=== PATIENT | male | born 1955 | race Caucasian/White ===

== ENCOUNTER 2020-06-30 09:42 | Emergency (ER) | payer OTHER, SELFPAY ==
--- NOTE | 2020-06-30 10:09 | ED.GENADULT ---
HPI - General Adult General Chief complaint: Eye Problems Stated complaint: Possible [employer] [facility] Time Seen by Provider: 06/30/20 10:09 Source: patient and RN notes reviewed Mode of arrival: ambulatory Limitations: no limitations History of Present Illness HPI narrative: 65-year-old male presents with complains of right eye redness for 1 day. No treatment. Dmitriy reports he looked in the mirror on 06/29/20 at approximately 18:00 and noted redness to right eye. Dmitriy reports intermittent episodes of coughing due to history of Emphysema related to history of smoking. Denies pain or drainage from eye. Denies injury or exacerbating factors. Denies blurred vision, double vision, sensation of foreign body, or pain of eye with movement. Remains active. The patient reports he have not been diagnosed with COVID-19. The patient reports he is not waiting for the results of a COVID-19 lab test. The patient reports he do not have fever, chills, weakness, or fatigue. The patient reports he do not have a new or worsening cough or shortness of breath. Denies chest pain. The patient reports he do not have any rhinorrhea, congestion, loss of taste, sore throat, nausea, vomiting, abdominal pain, and diarrhea. Tolerating po intake well. Denies recent traveling. Denies concerns for COVID-19 or exposures been home with limited outdoor exposure except for essential household needs, work, and return home. At this time, patient is not suspected of having COVID-19. Some parts of this dictation were generated by voice recognition software and may contain typographical and/or grammatical inaccuracies. Related Data Home Medications Medication Instructions Recorded Confirmed atorvastatin 10 mg PO DAILY 06/30/20 06/30/20 diclofenac sodium 75 mg PO DAILY 06/30/20 06/30/20 losartan 50 mg PO DAILY 06/30/20 06/30/20 umeclidinium-vilanterol [Anoro 25 ea INHALATION DIRECTED 06/30/20 06/30/20 Ellipta] Allergies Allergy/AdvReac Type Severity Reaction Status Date / Time No Known Allergies Allergy Verified 01/31/20 11:08 Review of Systems Constitutional: Comments: CONSTITUTIONAL: Denies fever, chills, sweats. EYES: Denies visual changes. Complains of redness to RT eye. ENT: Denies rhinorrhea, congestion, sore throat, otalgia. CARDIOVASCULAR: Denies chest pain, palpitations, edema. RESPIRATORY: Denies dyspnea, wheezing. Complains of intermittent coughing episodes. GASTROINTESTINAL: Denies abdominal pain, nausea, vomiting, diarrhea. SKIN: Denies rash or itching. MUSCULOSKELETAL: Denies acute back pain, joint pain, or myalgia. NEUROLOGIC: Denies numbness or focal weakness. PSYCHIATRIC: Denies anxiety or depression. All systems reviewed & are unremarkable except as noted in HPI and below. [facility] Past Medical History Medical History Chronic low back pain without sciatica COPD (chronic obstructive pulmonary disease) Dyslipidemia Emphysema, unspecified Essential (primary) hypertension Hearing loss right ear Surgical History Surgical History [place] teeth extracted Family History Family History (Updated 06/30/20 @ 10:35 by DARLEEN Ocampo) Mother Family history of primary malignant neoplasm of liver, Onset Age: 70 Father Heart attack Cerebrovascular accident Social History Social History (Updated 06/30/20 @ 10:36 by DARLEEN Ocampo) Smoking status: Former smoker Tobacco type: cigarettes Second hand tobacco smoke exposure: No Smoking end date: 07/07/14 Alcohol intake: former Substance use: former Living arrangements: alone Occupation/Education: occupation Gender identity (if verbalized by the patient): Male Comments At time of signature, agree with nurse past medical, surgical, social, and family history. There is no relevant family history pertinent
[2020-06-30 10:28] VITALS: BP 162/91; PULSE 69; RESP 18; TEMP 35.9; O2SAT 98
== END 2020-06-30 10:32 | disposition home or self-care (01) ==
PROVIDERS: Emergency Provider Nurse Practitioner Family; PCP Family Medicine
DX: H11.31 Conjunctival hemorrhage, right eye (principal); Z87.891 Personal history of nicotine dependence; J44.9 Chronic obstructive pulmonary disease, unspecified; E78.5 Hyperlipidemia, unspecified; I10 Essential (primary) hypertension
CPT/HCPCS: 99212; G0463

== ENCOUNTER 2021-03-22 14:29 | Outpatient (CLI) | payer OTHER, SELFPAY ==
--- NOTE | ~2021-03-22 | MR_ITS ---
EXAMINATION: MR brain IAC wo/w con EXAM DATE: 03/22/2021 15:49 INDICATION: Sudden hearing loss for one week. Chronic right-sided tinnitus. TECHNIQUE: Multi-sequential, multiplanar MR images of the brain, brainstem, internal auditory canals were obtained without contrast. Whole brain sagittal T1, axial diffusion, gradient echo (T2*), T1, T 2, FLAIR sequences obtained. High resolution coronal 3-D FIESTA, coronal T1 FSE, axial T1 FSPGR of t he internal auditory canals. Patient was then injected with 15 cc Multihance contrast intravenously. Postcontrast axial and coronal T1 weighted whole brain, axial and coronal high resolution T1 IAC seq uences obtained. There is no prior study for comparison. FINDINGS: No evidence of mastoid or middle ear opacification. The 7th/8th cranial nerve complexes a re symmetric, normal in course and caliber. No cerebellopontine angle masses. Posterior fossa unrem arkable. There are no areas of restricted diffusion to suggest acute infarction. There is no acute hemorrhage seen on the T2*, a hemosiderin sensitive sequence. No intraparenchymal brain mass lesion. There is mild periventricular and subcortical T2/FLAIR signal hyperintensity, nonspecific but probably related to small vessel ischemic disease (microangiopathy). There are no extra-axial collections. Flow voids are seen in the cerebral arteries on the T2-weighted sequences consistent with their expected p atency. The orbits are unremarkable. Soft tissue is unremarkable. There are no areas of abnormal e nhancement on the postcontrast images. IMPRESSION: 1. Unremarkable internal auditory canals. 2. Mild microangiopathy. Reviewed, dictated and finalized at location B.
[2021-03-22 15:06] LABS: Estimated Glomerular Filt Rate > 60
== END 2021-03-22 14:30 | disposition home or self-care (01) ==
LOC: ANHIMG 14:40
PROVIDERS: PCP Family Medicine; Visit Provider Nurse Practitioner Family
DX: H91.20 Sudden idiopathic hearing loss, unspecified ear (principal)
CPT/HCPCS: 70553; A9577

== ENCOUNTER 2021-10-31 07:43 | Outpatient (CLI) | payer OTHER, MEDICARE, SELFPAY ==
--- NOTE | ~2021-10-31 | US_ITS ---
EXAMINATION: US aorta [facility] DATE: 10/31/2021 08:39 INDICATION: Abdominal aortic aneurysm screening TECHNIQUE: Grayscale, color Doppler, and pulsed Doppler images of the aorta and common iliac arteries were obtained. COMPARISON: None. FINDINGS: The proximal aorta measures 2.6 cm. The mid aorta measures 2.2 cm. The distal aorta measures 1.4 cm. The right common iliac artery measures 10 mm. The left common iliac artery measures 10 mm. IMPRESSION: 1. Normal caliber abdominal aorta Reviewed, dictated and finalized at location B.
--- NOTE | ~2021-10-31 | CT_ITS ---
EXAMINATION: CT lung screening DATE: 10/31/2021 08:35 INDICATION: TECHNIQUE: Computed tomography (CT) of the chest was performed without intravenous contrast. Automate d exposure control and iterative reconstruction technique were employed. Exam dose: 96.99 mGy-cm tot al exam DLP. COMPARISON: 07/18/2014 PA and lateral chest FINDINGS: Moderately severe emphysematous changes of the lungs. Bilateral apical scarring. No pulmonary infiltrate or consolidation or pulmonary mass lesion is noted. Normal heart size. Coronary artery calcifications. No thoracic aortic aneurysm. No hilar or mediastinal mass lesion or lymphadenopathy. No adrenal mass lesion. Degenerative changes of cervical, thoracic and lumbar spine. IMPRESSION: LUNG-RADS category 1: Negative Recommendation: Annual low-dose lung CT Reviewed, dictated and finalized at Location A. Reviewed, dictated and finalized at location A.
== END 2021-10-31 07:44 | disposition home or self-care (01) ==
LOC: ANHIMG 07:48
PROVIDERS: PCP Family Medicine; Visit Provider Family Medicine
DX: Z12.2 Encounter for screening for malignant neoplasm of respiratory organs (principal); Z13.6 Encounter for screening for cardiovascular disorders; Z87.891 Personal history of nicotine dependence
CPT/HCPCS: 71271; 76706

== ENCOUNTER 2021-12-28 00:56 | Day surgery (SDC) | payer OTHER, MEDICARE, SELFPAY ==
[2021-12-10 15:46] VITALS: BMI 23.8
--- NOTE | 2021-12-27 11:54 | WPDANESEPPF ---
Anes - Initial Pre Proc Eval Procedure: Operation Date: 12/28/21 09:30 Proposed Procedures p Colonoscopy - Malcolm Gonzalez MD Date/Time: 12/27/21 11:54 Surgeon: Malcolm Gonzalez MD Pre Op Diagnosis: positive cologuard Patient Data Age: 66 Gender: M Height: 1.83 m Weight: 79.5 kg Allergies Allergy/AdvReac Type Severity Reaction Status Date / Time No Known Allergies Allergy Verified 12/28/21 08:36 Home Medications Medication Instructions Recorded Confirmed Type albuterol sulfate 90 mcg/actuation 1 inh inhalation Q4H PRN shortness 07/17/20 12/28/21 Rx aerosol inhaler of breath or wheezing #8.5 grams atorvastatin 10 mg tablet 10 mg PO QHS #90 tabs 10/22/21 12/28/21 Rx loratadine 10 mg tablet 10 mg PO DAILY #90 tabs 11/15/21 12/28/21 Rx budesonide-formoterol HFA 160 2 puff inhalation Q12H #30.6 grams 11/26/21 12/28/21 Rx mcg-4.5 mcg/actuation aerosol inhaler (Symbicort) sodium sul 1.479 gram-potas ch See Rx Instructions PO PER PKG DIR 12/07/21 12/28/21 Rx 0.188 gram-magnes sul 0.225 gram #24 tabs tablet (Sutab) alendronate 70 mg-cholecalciferol 1 tablet PO DAILY 12/10/21 12/28/21 History (vitamin D3) 2,800 unit tablet ibuprofen 300 mg tablet 300 mg PO PRN PRN Pain 12/10/21 12/28/21 History losartan 50 mg tablet 50 tablet PO DAILY 12/10/21 12/28/21 History Patient hx anesthesia problems: none Family hx anesthesia problems: none Results Review: All pre-operative results and documents have been reviewed as part of the pre-operative evaluation. [facility] Past Medical History Medical History Chronic low back pain without sciatica COPD (chronic obstructive pulmonary disease) Dyslipidemia Emphysema, unspecified Essential (primary) hypertension Hearing loss left ear Surgical History Surgical History [place] teeth extracted (Unknown) Family History Family History Mother Family history of primary malignant neoplasm of liver, Onset Age: 70 Father Heart attack Cerebrovascular accident Social History Social History Smoking packs per day: 1.5 Smoking cigarettes per day: 30.0 Years smoked: 50 Smoking pack-years: 75.00 Smoking status: Former smoker Tobacco type: cigarettes Second hand tobacco smoke exposure: No Smoking end date: 07/07/14 Alcohol intake: former Substance use: current Substance use type: marijuana Other substance usage details: occasional use Living arrangements: alone Gender identity (if verbalized by the patient): Male Spiritual care concerns: No Anes - Eval Final PreProcedure Day of Procedure 12/27/21 11:54 Patient weight: obese Heart: regular rate and rhythm Lungs: clear to auscultation Airway: Mallampati scale class II Neurological: alert and oriented Last oral intake: >/= 8 hours ASA classification: III Emergent: no Anesthetic plan: proceed Anesthesia type and monitoring: general GIVS and standard monitoring Results Review: All pre-operative results and documents have been reviewed as part of the pre-operative evaluation. Informed Consent: The patient's anesthetic plan and its attendant risks and benefits were discussed with the patient/family/POA. Questions were solicited and answers provided to the satisfaction of the patient/family/POA.
--- NOTE | 2021-12-28 07:25 | PM.HPGS ---
History of Present Illness History of Present Illness Consent: Risks, benefits, and alternatives have been discussed and questions answered. Patient agrees to proceed with procedure. Chief complaint: positive cologuard Narrative: Dmitriy Martin is a 66 year old male Who was referred for colon cancer screening. He had recently performed a Cologuard test that was positive. Review of Systems Review of Systems: All systems reviewed & are unremarkable except as noted in HPI and below PMFSH Past Medical History Medical History Chronic low back pain without sciatica COPD (chronic obstructive pulmonary disease) Dyslipidemia Emphysema, unspecified Essential (primary) hypertension Hearing loss left ear Surgical History Surgical History [place] teeth extracted (Unknown) Family History Family History Mother Family history of primary malignant neoplasm of liver, Onset Age: 70 Father Heart attack Cerebrovascular accident Social History Social History Smoking packs per day: 1.5 Smoking cigarettes per day: 30.0 Years smoked: 50 Smoking pack-years: 75.00 Smoking status: Former smoker Tobacco type: cigarettes Second hand tobacco smoke exposure: No Smoking end date: 07/07/14 Alcohol intake: former Substance use: current Substance use type: marijuana Other substance usage details: occasional use Living arrangements: alone Gender identity (if verbalized by the patient): Male Spiritual care concerns: No Meds Home Medications and Allergies Home Medications Medication Instructions Recorded Confirmed Type albuterol sulfate 90 mcg/actuation 1 inh inhalation Q4H PRN shortness 07/17/20 12/10/21 Rx aerosol inhaler of breath or wheezing #8.5 grams atorvastatin 10 mg tablet 10 mg PO QHS #90 tabs 10/22/21 12/10/21 Rx loratadine 10 mg tablet 10 mg PO DAILY #90 tabs 11/15/21 12/10/21 Rx budesonide-formoterol HFA 160 2 puff inhalation Q12H #30.6 grams 11/26/21 12/10/21 Rx mcg-4.5 mcg/actuation aerosol inhaler (Symbicort) sodium sul 1.479 gram-potas ch See Rx Instructions PO PER PKG DIR 12/07/21 12/10/21 Rx 0.188 gram-magnes sul 0.225 gram #24 tabs tablet (Sutab) alendronate 70 mg-cholecalciferol 1 tablet PO DAILY 12/10/21 12/10/21 History (vitamin D3) 2,800 unit tablet ibuprofen 300 mg tablet 300 mg PO PRN PRN Pain 12/10/21 12/10/21 History losartan 50 mg tablet 50 tablet PO DAILY 12/10/21 12/10/21 History Allergies Allergy/AdvReac Type Severity Reaction Status Date / Time No Known Allergies Allergy Verified 12/10/21 15:43 Exam Resp: Auscultation: clear to auscultation bilaterally Cardio: Rate: regular rate Rhythm: regular rhythm GI: GI Palp: Yes Soft to palpation and No Tenderness to palpation present (GI) Assessment and Plan Assessment and plan (1) Colon cancer screening: Code(s): Z12.11 - Encounter for screening for malignant neoplasm of colon Status: Acute Assessment and Plan: Colonoscopy with possible biopsy or polypectomy or cautery or injection of substances.
[2021-12-28 08:38] VITALS: BP 151/80; PULSE 61; RESP 19; TEMP 36.7; O2SAT 99
[2021-12-28] MEDS: LACTATED RINGERS 1,000 ML 150 ML IV CONT (08:48)
--- NOTE | 2021-12-28 09:37 | SUR.OPER ---
Patient pulled his IV out. procedure paused for IV placement. RN placed a new 20G IV in R AC. Procedure resumed
[2021-12-28] MEDS: SIMETHICONE ORAL SUSPENSION 20 MG/0.3 ML 30 ML BOTTLE 0.6 ML IRRIGATION (09:40)
--- NOTE | 2021-12-28 09:47 | SUR.OPER ---
RN confirmed collection of rectal polyp with Dr. Gonzalez
[2021-12-28 09:52] VITALS: BP 116/69; PULSE 75; RESP 20; O2SAT 96
[2021-12-28 10:02] VITALS: BP 104/80; PULSE 80; RESP 18; O2SAT 97
[2021-12-28 10:12] VITALS: BP 128/80; PULSE 64; RESP 20; O2SAT 100
== END 2021-12-28 10:24 | disposition home or self-care (01) ==
PROVIDERS: PCP Family Medicine; Visit Provider Internal Medicine Gastroenterology
PROC: 0DJD8ZZ Inspection of Lower Intestinal Tract, Via Natural or Artificial Opening Endoscopic (ICD-10-PCS; CPT 45378; principal; 2021-12-28 09:30)
DX: Z12.11 Encounter for screening for malignant neoplasm of colon (principal); D12.8 Benign neoplasm of rectum; K57.30 Diverticulosis of large intestine without perforation or abscess without bleeding; R19.5 Other fecal abnormalities; E78.5 Hyperlipidemia, unspecified; I10 Essential (primary) hypertension; J43.9 Emphysema, unspecified; Z79.51 Long term (current) use of inhaled steroids; Z87.891 Personal history of nicotine dependence; F12.90 Cannabis use, unspecified, uncomplicated
CPT/HCPCS: 45385; 88305; J2704; J7120

== ENCOUNTER 2022-03-18 10:30 | Outpatient (CLI) | payer OTHER, MEDICARE, SELFPAY ==
--- NOTE | ~2022-03-18 | US_ITS ---
US soft tissue chest DATE: 03/18/2022 10:57 INDICATION: Right 11:00 breast lump TECHNIQUE: Real-time imaging targeted at 11:00 right breast area COMPARISON: None FINDINGS: No suspicious mass, shadowing, cyst or other significant sonographic finding is noted in th e right breast at 11:00 at the area of clinical complaint of lump. IMPRESSION: Negative Reviewed, dictated and finalized at Location A. Reviewed, dictated and finalized at location A. IMPRESSION: Negative
== END 2022-03-18 10:31 | disposition home or self-care (01) ==
PROVIDERS: PCP Family Medicine; Visit Provider Nurse Practitioner Family
DX: N64.59 Other signs and symptoms in breast (principal)
CPT/HCPCS: 76604

== ENCOUNTER 2022-05-20 13:55 | Outpatient (CLI) | payer OTHER, MEDICARE, SELFPAY ==
[2022-05-20 19:18] LABS: Alanine Aminotransferase 17 U/L (6-50); Albumin Level 4.4 g/dL (3.5-5.1); Alkaline Phosphatase 44 U/L (38-126); Anion Gap 16 mmol/L (8-16); Aspartate Amino Transferase 22 U/L (17-59); Bilirubin,Total 0.5 mg/dL (0.2-1.3); Blood Urea Nitrogen 14 mg/dL (9-20); Calcium 9.2 mg/dL (8.4-10.2); Carbon Dioxide 27 mmol/L (22-30); Chloride 101 mmol/L (98-107); Estimated Glomerular Filt Rate > 60; Glucose 94 mg/dL (65-110); Potassium 4.2 mmol/L (3.4-5.0); Sodium 144 mmol/L (137-145)
== END 2022-05-20 13:56 | disposition home or self-care (01) ==
PROVIDERS: PCP Family Medicine; Visit Provider Family Medicine
DX: E78.5 Hyperlipidemia, unspecified (principal); I10 Essential (primary) hypertension; Z79.899 Other long term (current) drug therapy
CPT/HCPCS: 36415; 80053

== ENCOUNTER 2022-11-04 08:36 | Outpatient (CLI) | payer MEDICARE, SELFPAY ==
[2022-11-04 13:47] LABS: Basophils Absolute Auto 0.1 K/mm3 (0.0-0.1); Basophils Percent Auto 1.2 % (0.2-1.2); Eosinophils Absolute Auto 0.1 K/mm3 (0-0.3); Eosinophils Percent Auto 2.1 % (0-4.4); Hematocrit 45.3 % (42.0-52.0); Hemoglobin 14.7 g/dL (14.0-18.0); Immature Granulocyte Absolute 0.02 K/mm3 (0.00-0.031); Immature Granulocyte Percent A 0.3 % (0-0.5); Lymphocytes Absolute Auto 1.27 K/mm3 (0.9-3.2); Lymphocytes Percent Auto 22.2 % (18.3-44.2); Mean Corpuscular HGB Conc 32.5 g/dl (32-36); Mean Corpuscular Hemoglobin 30.7 pg (26-34); Mean Corpuscular Volume 94.6 fl (80-100); Mean Platelet Volume 9.8 fl (7.4-10.4); Monocytes Absolute Auto 0.6 K/mm3 (0.1-0.6); Monocytes Percent Auto 11.2 % (2.6-8.5); Neutrophils Absolute Auto 3.6 K/mm3 (1.3-6.7); Platelet Count Result 305 k/mm3 (150-375); Red Blood Count 4.79 M/mm3 (4.6-6.20); Red Cell Distribution Width 12.9 % (11.5-14.5); White Blood Count 5.7 K/mm3 (4.5-10.0)
[2022-11-04 13:58] LABS: Alanine Aminotransferase 17 U/L (6-50); Albumin Level 4.6 g/dL (3.5-5.1); Alkaline Phosphatase 53 U/L (38-126); Anion Gap 7 mmol/L (8-16); Aspartate Amino Transferase 24 U/L (17-59); Bilirubin,Total 0.6 mg/dL (0.2-1.3); Blood Urea Nitrogen 10 mg/dL (9-20); Calcium 9.1 mg/dL (8.4-10.2); Carbon Dioxide 32 mmol/L (22-30); Chloride 102 mmol/L (98-107); Cholesterol 158 mg/dL (0-200); Estimated Glomerular Filt Rate > 60; Glucose 85 mg/dL (65-110); HDL Direct 45 mg/dL; Potassium 4.5 mmol/L (3.4-5.0); Sodium 141 mmol/L (137-145); Triglycerides 142 mg/dL (<150)
[2022-11-04 14:09] LABS: LDL Cholesterol Direct 82 mg/dL
[2022-11-04 14:17] LABS: Vitamin D 25 Hydroxy 32.4 ng/mL
[2022-11-04 14:26] LABS: Prostate Specific Antigen 0.8 ng/mL (< OR = 4.0); Thyroid Stimulating Hormone 0.594 uIU/mL (0.465-4.680)
== END 2022-11-04 08:37 | disposition home or self-care (01) ==
LOC: ANHGOSHLAB 08:38
PROVIDERS: PCP Family Medicine; Visit Provider Nurse Practitioner Family
DX: E78.5 Hyperlipidemia, unspecified (principal); I10 Essential (primary) hypertension; Z12.5 Encounter for screening for malignant neoplasm of prostate; E55.9 Vitamin D deficiency, unspecified
CPT/HCPCS: 36415; 80053; 80061; 82306; 84153; 84443; 85025; G0103

== ENCOUNTER 2022-11-11 08:56 | Outpatient (CLI) | payer MEDICARE, SELFPAY ==
--- NOTE | ~2022-11-11 | CT_ITS ---
EXAMINATION: CT lung screening DATE: 11/11/2022 09:56 INDICATION: Z87.891 - Personal history of nicotine dependence TECHNIQUE: Computed tomography (CT) of the chest was performed without intravenous contrast. Addition al 3D reconstructions utilizing coronal maximum intensity projection (MIP) were performed. Automated exposure control and iterative reconstruction technique were employed. The dose-length product was 92 .84 mGy-cm. COMPARISON: 10/31/2021 FINDINGS: Severe emphysema with upper lung predominance. Mild biapical pleural-parenchymal scarring. There is a new 1.9 x 1.1 cm spiculated nodule at the anterolateral left apex. Calcified left upper lobe nodule consistent with old granulomatous disease. Unchanged 5 mm nodule at the anterior segment of the right upper lobe. No pulmonary edema or pleural effusion. Heart size is normal. Atherosclerotic coronary a rtery calcifications. No pericardial effusion. Thoracic aorta is normal in caliber. No pathologically enlarged thoracic lymphadenopathy. There is osteopenia abdomen is unremarkable. Mild thoracic dextro curvature with moderate spondylosis. IMPRESSION: 1. Lung-RADS category 4X: (Very suspicious, >15% chance of malignancy) PET-CT and/or tissue sampling depending on probably of malignancy and comorbidities. Given that this nodule is completely new since the prior study could also consider a repeat low-dose noncontrast chest CT in one month to assess fo r potential infectious or inflammatory etiology. Reviewed, dictated and finalized at location A. IMPRESSION: 1. Lung-RADS category 4X: (Very suspicious, >15% chance of malignancy) PET-CT a nd/or tissue sampling depending on probably of malignancy and comorbidities. Gi ashvin that this nodule is completely new since the prior study could also conside r a repeat low-dose noncontrast chest CT in one month to assess for potential i nfectious or inflammatory etiology.
== END 2022-11-11 08:57 | disposition home or self-care (01) ==
PROVIDERS: PCP Family Medicine; Visit Provider Nurse Practitioner Family
DX: Z12.2 Encounter for screening for malignant neoplasm of respiratory organs (principal); Z87.891 Personal history of nicotine dependence; R91.8 Other nonspecific abnormal finding of lung field
CPT/HCPCS: 71271

== ENCOUNTER 2022-12-20 09:02 | Outpatient (CLI) | payer MEDICARE, SELFPAY ==
--- NOTE | ~2022-12-20 | CT_ITS ---
EXAMINATION: CT diagnostic chest w con DATE: 12/20/2022 09:28 INDICATION: Follow-up pulmonary nodule TECHNIQUE: Computed tomography (CT) of the chest was performed with 75 cc Omnipaque 350 intravenous c ontrast. The dose-length product was 192.98 mGy-cm. Automated exposure control and iterative reconstr uction technique were employed. COMPARISON: CT dated 11/11/2022 FINDINGS: Severe emphysema. Spiculated mass in the left upper lobe measures 2.1 x 1.6 cm compared wit h 1.9 x 1.1 cm on prior examination, consistent with bronchogenic carcinoma until proven otherwise. N o endobronchial lesions. No pneumothorax. There is mediastinal lymph node enlargement. Right paratrac heal lymph node measures 12 mm short axis. No significant pleural or pericardial effusion. Heart size normal. Moderate thoracic lymphadenopathy. No focal lytic or blastic lesions. IMPRESSION: 1. Enlarging spiculated left upper lobe mass measuring up to 2.1 cm, consistent with bronchogenic car cinoma until proven otherwise. Recommend percutaneous biopsy. 2: Mediastinal lymphadenopathy. Cannot exclude metastatic disease. Reviewed, dictated and finalized at location A. IMPRESSION: 1. Enlarging spiculated left upper lobe mass measuring up to 2.1 cm, consistent with bronchogenic carcinoma until proven otherwise. Recommend percutaneous bio psy. 2: Mediastinal lymphadenopathy. Cannot exclude metastatic disease.
[2022-12-20 09:23] LABS: Estimated Glomerular Filt Rate > 60
== END 2022-12-20 09:03 | disposition home or self-care (01) ==
PROVIDERS: PCP Family Medicine; Visit Provider Nurse Practitioner Family
DX: R91.1 Solitary pulmonary nodule (principal)
CPT/HCPCS: 71260; Q9967

== ENCOUNTER 2023-01-02 01:54 | Outpatient (CLI) | payer MEDICARE, SELFPAY ==
[2022-12-27 10:21] VITALS: BMI 20.9
--- NOTE | 2022-12-27 10:24 | PC.NURSE ---
Pre Radiology instructions Report to the outpatient dax calderon on date _01/02/23____ at time _9:00AM for procedure Time: _11:00AM___ YOU MAY BE MONITORED AT HOSPITAL FOR UP TO 4 HOURS AFTER YOUR PROCEDURE. A visitor will be allowed to accompany the patient into the hospital. You and your visitor will be asked to self-screen and do not enter if you have any COVID symptoms. A mask is OPTIONAL within the hospital. Patients are to have no food or drink 6 hours prior to procedure time- 5:00AM Driving will be restricted after the procedure, you must have a person to drive you home. Labs will be drawn in preop area and once reviewed, you will be taken to radiology area for procedure. When the procedure is completed, you will be taken to outpatient where you will be monitored for several hours. You may have one visitor in this area. Other than holding anti-coagulants, patient may take other medication(s) as scheduled. Prior to your appointment date patients are instructed to hold anti-coagulants after discussing with ordering provider to stop. If unable to discontinue anti-coagulants please notify radiologist. ? No aspirin or warfarin (Coumadin) for 7 days prior to the procedure. ? No clopidogrel (Plavix), ticagrelor (Brilinta), prasugrel (Effient) or dabigatran (Pradaxa) for 5 days prior to the procedure. ? No rivaroxaban (Xarelto), apixaban (Eliquis), dipyridamole (Aggrenox or Persantine) or cilostazol (Pletal) for 2 days prior to the procedure. Medications to discontinue per physician: _NONE Date to take last dose: Please leave all valuables, including medications, at home the day of procedure. The hospital will not accept responsibility for valuables. Wear comfortable, loose fitting clothing.? Follow any additional instructions given to you from ordering provider. Telephone instructions given to __PATIENT and asked if any additional questions and then verbalized understanding. Patient advised to call scheduling provider office or registration scheduling [phone] if any additional questions.
[2023-01-02] VITALS (12 sets, daily range): BP systolic 110–146; BP diastolic 61–82; PULSE 55–70; RESP 16–18; TEMP 37.1; O2SAT 97–100; BMI 20.5
--- NOTE | ~2023-01-02 | XR_ITS ---
Portable chest x-ray Comparison: 01/02/2023 at 11:31 AM Clinical History: Postbiopsy Findings: Probable small left apical pneumothorax present. Subtle spiculated left apical pulmonary n odule noted. Right lung clear. Cardiomediastinal silhouette is stable. Bones and soft tissues are un remarkable. Impression: Probable very small left apical pneumothorax. Subtle spiculated left apical pulmonary nodule. Follow-up with biopsy results. Reviewed, dictated and finalized at location . Impression: Probable very small left apical pneumothorax. Subtle spiculated left apical pulmonary nodule. Follow-up with biopsy results.
--- NOTE | ~2023-01-02 | XR_ITS ---
EXAMINATION: XR chest 1V DATE: 01/02/2023 11:33 INDICATION: Status post percutaneous left lung biopsy TECHNIQUE: frontal view of the chest was obtained. COMPARISON: Chest CT dated 12/20/2022 FINDINGS: There is increased lucency and architectural distortion in the bilateral upper lung zones consistent with emphysema. Spiculated left apical nodule corresponding to the biopsied nodule of concern suspici ous for primary bronchogenic carcinoma. Mild linear discoid atelectasis/scarring at the lateral right middle lobe. No other airspace opacities, pulmonary edema, pleural effusion or pneumothorax. The car diomediastinal silhouette is normal. Mild thoracic dextrocurvature with moderate spondylosis. IMPRESSION: 1. No pneumothorax or other acute cardiopulmonary disease post percutaneous biopsy of a left apical n odule suspicious for primary pancreatic carcinoma. 2. Emphysema. Reviewed, dictated and finalized at location A. IMPRESSION: 1. No pneumothorax or other acute cardiopulmonary disease post percutaneous bio psy of a left apical nodule suspicious for primary pancreatic carcinoma. 2. Emphysema.
--- NOTE | ~2023-01-02 | XR_ITS ---
EXAMINATION: XR chest 1V portable Exam Date/Time: 01/02/2023 14:33 CDT HISTORY: Post Image Guided Lung Biopsy Comparison: 01/02/2023 at 12:24 PM, 11:31 AM; CT lung biopsy 01/02/2023. RESULT: Lines, tubes, and devices: None. Lungs and pleura: Persistent visualization of a pleural line in the right apex. Right apical scar. S table emphysematous change and pulmonary nodules. Cardiomediastinal silhouette: Stable. Other: No acute osseous or upper abdominal finding. IMPRESSION: Stable small apical left pneumothorax. Reviewed, dictated and finalized at location K.
--- NOTE | ~2023-01-02 | CT_ITS ---
EXAMINATION: CT biopsy lung w/imaging DATE: 01/02/2023 11:36 INDICATION: Left upper lobe pulmonary nodule TECHNIQUE: The procedure including the risks and benefits was discussed with the patient. Risks discu ssed included infection, approximately 1/20 risk of symptomatic hemorrhage beyond mild hemoptysis, ap proximately 1/3 risk of pneumothorax, and approximately 1/10 risk of pneumothorax severe enough to wa rrant chest tube placement. The patient understood the risks and agreed to proceed. The patient was p laced supine. The skin overlying the infra clavicular left chest was prepped and draped in sterile f ashion. Anesthetic was administered with 1% lidocaine subcutaneously. A 19 gauge outer needle was a dvanced under CT guidance to the lesion of interest. A 20 gauge core biopsy needle was then used to o btain 4 core biopsy specimens. The needle was removed and the entry site was cleaned and dressed. Th ere were no immediate complications. The dose-length product was 114.49 mGy-cm. FINDINGS: CT images demonstrate the outer needle tip adjacent to just within a 2.3 x 1.6 cm spiculate d nodule at the apical segment of the left upper lobe. IMPRESSION: 1. Successful CT-guided biopsy of a 2.3 x 1.6 cm left apical nodule. Reviewed, dictated and finalized at location A.
[2023-01-02 09:42] LABS: Mean Platelet Volume 9.3 fl (7.4-10.4); Platelet Count Result 285 k/mm3 (150-375)
[2023-01-02 10:04] LABS: INR 0.9; Prothrombin Time 12.4 Seconds (11.1-14.7)
--- NOTE | 2023-01-02 12:29 | SUR.PHASEII ---
cxr at in progress
--- NOTE | 2023-01-02 12:42 | SUR.PHASEII ---
this nurse called dr araiza regarding pt repeat cxr no answer and this nurse left a vm
--- NOTE | 2023-01-02 12:45 | SUR.PHASEII ---
this nurse called visitor to give an update and it went to . I left a
--- NOTE | 2023-01-02 12:54 | SUR.PHASEII ---
dr araiza aware of the recent cxr results. dr araiza said to take pt off of O2 to see how he responds and continue to monitor.
== END 2023-01-02 15:18 | disposition home or self-care (01) ==
PROVIDERS: PCP Family Medicine; Visit Provider Radiology Diagnostic Radiology
PROC: BB24ZZZ Computerized Tomography (CT Scan) of Bilateral Lungs (ICD-10-PCS; CPT 32408; principal; 2023-01-02 11:00)
DX: R91.8 Other nonspecific abnormal finding of lung field (principal); J43.9 Emphysema, unspecified
CPT/HCPCS: 32408; 36415; 71045; 85049; 85610; 88305

== ENCOUNTER 2023-02-13 09:10 | Outpatient (CLI) | payer MEDICARE, SELFPAY ==
--- NOTE | ~2023-02-13 | PE_ITS ---
EXAMINATION: PET skull to mid thigh DATE: 02/13/2023 11:00 INDICATION: Solitary pulmonary nodule TECHNIQUE: Blood glucose level was 101 mg/dL. 10.88 mCi of 18-fluorodeoxyglucose (18-FDG) was adminis tered i.v. Low dose computed tomography (CT) images were acquired from the base of the brain to the p roximal thighs for attenuation correction and anatomic localization. Positron emission tomography (PE T) images were acquired in the same distribution beginning 55 minutes after injection. Images includi ng fused PET/CT images were reconstructed in axial, coronal, and sagittal planes. Automated exposure control technique was employed. The dose-length product was 481.20mGy-cm. COMPARISON: CT dated 12/20/2022 FINDINGS: Head/neck: There is symmetric increased activity in the oral cavity, palatine tonsils, parotid glands, submandi bular glands, laryngeal muscles and ocular muscles without CT correlate, likely physiologic. No patho logically enlarged cervical lymphadenopathy or suspicious foci of increased FDG uptake in the visuali zed head or neck. Chest: Severe emphysema. 2.0 x 1.4 cm spiculated nodule at the anterior apex of the left upper lobe with pro minent FDG uptake with maximal SUV of 18.1. Small calcified nodules in the left upper lobe consistent with old granulomatous disease. 4 mm noncalcified nodule at the anterior segment of the right upper lobe near the minor fissure without evident FDG activity. No other suspicious pulmonary nodules, pneu monia or pleural effusion. Heart size is normal. Atherosclerotic coronary artery calcific lesion. No pericardial effusion. Thoracic aorta is normal in caliber. No interval change in size since 10/31/2021 in a 1.1 cm precarinal lymph node with mild increased FDG uptake with maximal SUV of 5.0. Abdomen/pelvis/proximal thighs: Physiologic renal accumulation and excretion of FDG activity in the kidneys, bladder and along portio ns of ureters. Normal degree and heterogenous pattern of increased uptake throughout the liver withou t radiologic correlate or dominant FDG avid lesion. The gallbladder, pancreas, spleen and bilateral a drenal glands are normal. Mild uptake scattered throughout the bowels without radiologic correlate, a lso likely physiologic. Numerous diverticula along the descending and sigmoid colon without adjacent from trace stranding to suggest diverticulitis. Mild prostatomegaly measuring 4.4 x 2.9 cm. No other abnormal foci of increased FDG uptake or pathologically enlarged lymphadenopathy in the abdomen, pelv is or proximal thighs. Musculoskeletal: Severe cervical and lumbar and moderate thoracic spondylosis. No suspicious lytic, blastic or FDG tanya d bone lesions. IMPRESSION: 1. Prominent FDG uptake associated with a 2.0 x 1.4 cm spiculated left upper lobe nodule which could be malignant or infectious in etiology. Recent percutaneous biopsy demonstrated chronic inflammation and fibrosis but but with no malignancy noted. Recommend continued follow-up with low-dose noncontras t chest CT in 3 months. 2. Increased uptake at a mildly enlarged precarinal lymph node which is unchanged in size since 2021, most likely reactive although in the setting of malignancy the differential would include metas tatic disease. No other lesions suspicious for metastatic disease. Reviewed, dictated and finalized at location L. IMPRESSION: 1. Prominent FDG uptake associated with a 2.0 x 1.4 cm spiculated left upper lo be nodule which could be malignant or infectious in etiology. Recent percutaneo us biopsy demonstrated chronic inflammation and fibrosis but but with no malign srikanth noted. Recommend continued follow-up with low-dose noncontrast chest CT in 3 months. 2. Increased uptake at a mildly enlarged precarinal lymph node which is unchang ed
[2023-02-13 09:32] LABS: Glucose Point of Care 101 mg/dl (65-105)
== END 2023-02-13 09:11 | disposition home or self-care (01) ==
PROVIDERS: PCP Family Medicine; Visit Provider Nurse Practitioner Family
DX: R91.1 Solitary pulmonary nodule (principal)
CPT/HCPCS: 78815; A9552

== ENCOUNTER 2023-03-04 07:52 | Outpatient (CLI) | payer MEDICARE, SELFPAY ==
--- NOTE | 2023-03-04 16:03 | WPDSIXMINUTE ---
Six Minute Walk Procedure Procedure Performed Pulmonary Stress Test (6 min walk) Six Minute Walk Six Minute Walk: This is a 6 minute walk test. The test was performed and interpreted in accordance with the 2014 ERS/ATS task force guidelines. Findings: The patient's resting room air oxygen saturation measured by pulse oximetry was 95% and heart rate was 59 bpm. Patient ambulated for 396 meters and oxygen saturation remained 95 to 98%. Heart rate at the end of the study was 72 bpm. The patient did not qualify for supplemental oxygen at rest or with ambulation. There are no prior studies for comparison.
--- NOTE | 2023-03-04 16:04 | P.PCNPFT_ITS ---
PFT Procedure Performed PFT Procedure Performed Spirometry with Pre/Post Bronchodilator Plethysmography (Lung Vol) Diffusing Cap (DLCO) Flow Vol Loop PFT Interpretation This is a pulmonary function test with pre and post-bronchodilator spirometry, plethysmography and diffusing capacity. The test was performed and results interpreted in accordance with the 2019 and 2005 ATS/ERS Task Force guidelines respectively using the Global Lung Function Initiative-2012 reference equations. Patient demonstrated good effort and cooperation. Reproducibility criteria were met. The quality of the pre bronchodilator spirometry maneuver was Grade A and post bronchodilator spirometry maneuver was Grade A. Findings: Spirometry: There is decreased maximal expiratory airflow at all lung volumes with concave expiratory flow tracing. The contour the inspiratory flow tracing is normal. The pre bronchodilator FVC is 4.35 L, 92% predicted. The pre bronchodilator FEV1 is 1.82 L, 51% predicted. The pre bronchodilator FEV1: FVC ratio is 42%. The the post bronchodilator FVC is 4.89 L, representing a 13% increase. The post bronchodilator FEV1 is 2.11 L, representing a 16% increase. The post bronchodilator FEV1: FVC ratio is 43%. Plethysmography: The total lung capacity is 9.43 L, 127% predicted. The func tional residual capacity is 6.26 L, 159% predicted. The residual volume is 4.97 L, 200% predicted. Diffusing capacity: The diffusing capacity unadjusted for hemoglobin and carboxyhemoglobin is 16.3, 59% predicted. The diffusing capacity adjusted for alveolar volume is 2.70, 68% predicted. In comparison to previous pulmonary function testing performed on 05/25/2019 the post bronchodilator FVC has increased from 4.10 L to 4.89 L. The post bronchodilator FEV1 has increased from 1.68 L to 2.11 L. The total lung capacity has remained unchanged from 8.98 L to 9.43 L. The functional residual capacity is unchanged from 6.87 L to 6.26 L. The residual volume is unchanged from 5.36 L to 4.97 L. The diffusing capacity unadjusted for hemoglobin and carboxyhemoglobin is unchanged from 16.9 to 16.3. The diffusing capacity adjusted for alveolar volume is decreased from 3.39 to 2.70. Impression: There is a moderately severe obstructive abnormality with significant improvement after inhaling a single dose of albuterol. The increase in residual volume is consistent with air trapping from an obstructive abnormality. Hyperinflation is present as demonstrated by the increase in functional residual capacity and total lung capacity and is consistent with an obstructive abnormality. The diffusing capacity unadjusted for hemoglobin and carboxyhemoglobin is moderately decreased and normalizes when adjusted for alveolar volume. In comparison to previous pulmonary function testing on 05/25/2019 there has been a greater than anticipated time dependent increase in the FVC and FEV1 with a greater than anticipated time dependent decrease in the diffusing capacity adjusted for alveolar volume with no significant change in the total lung capacity, functional residual capacity, residual volume and diffusing capacity unadjusted for hemoglobin and carboxyhemoglobin. Clinical correlation is recommended.
== END 2023-03-04 07:53 | disposition home or self-care (01) ==
LOC: ANHPFT 07:53
PROVIDERS: PCP Family Medicine; Visit Provider Nurse Practitioner Family
DX: R94.2 Abnormal results of pulmonary function studies (principal)
CPT/HCPCS: 94060; 94618; 94726; 94729

== ENCOUNTER 2023-05-16 08:55 | Outpatient (CLI) | payer MEDICARE, SELFPAY ==
[2023-05-16 13:56] LABS: Basophils Absolute Auto 0.1 K/mm3 (0.0-0.1); Basophils Percent Auto 1.5 % (0.2-1.2); Eosinophils Absolute Auto 0.1 K/mm3 (0-0.3); Eosinophils Percent Auto 2.3 % (0-4.4); Hematocrit 44.7 % (42.0-52.0); Hemoglobin 14.4 g/dL (14.0-18.0); Immature Granulocyte Absolute 0.02 K/mm3 (0.00-0.031); Immature Granulocyte Percent A 0.4 % (0-0.5); Immature Platelet Fraction Pct 5.7 % (0.9-11.2); Lymphocytes Percent Auto 30.9 % (18.3-44.2); Mean Corpuscular HGB Conc 32.2 g/dl (32-36); Mean Corpuscular Hemoglobin 31.1 pg (26-34); Mean Corpuscular Volume 96.5 fl (80-100); Mean Platelet Volume 10.8 fl (7.4-10.4); Monocytes Absolute Auto 0.5 K/mm3 (0.1-0.6); Monocytes Percent Auto 10.4 % (2.6-8.5); Neutrophils Absolute Auto 2.8 K/mm3 (1.3-6.7); Neutrophils Percent Auto 54.5 % (45.5-73.1); Platelet Count Result 301 k/mm3 (150-375); Red Blood Count 4.63 M/mm3 (4.6-6.20); Red Cell Distribution Width 13.1 % (11.5-14.5); White Blood Count 5.2 K/mm3 (4.5-10.0)
[2023-05-16 14:41] LABS: LDL Cholesterol Direct 104 mg/dL
[2023-05-16 14:56] LABS: Alanine Aminotransferase 15 U/L (6-50); Albumin Level 4.4 g/dL (3.5-5.1); Alkaline Phosphatase 53 U/L (38-126); Anion Gap 7 mmol/L (8-16); Aspartate Amino Transferase 23 U/L (17-59); Bilirubin,Total 0.6 mg/dL (0.2-1.3); Blood Urea Nitrogen 15 mg/dL (9-20); Calcium 9.2 mg/dL (8.4-10.2); Carbon Dioxide 30 mmol/L (22-30); Chloride 103 mmol/L (98-107); Cholesterol 174 mg/dL (0-200); Estimated Glomerular Filt Rate > 60; Glucose 96 mg/dL (65-110); HDL Direct 45 mg/dL; Potassium 4.2 mmol/L (3.4-5.0); Sodium 140 mmol/L (137-145); Triglycerides 105 mg/dL (<150)
[2023-05-20 09:58] LABS: Vitamin D 1,25 (OH)2 Total 43 pg/mL (18-72); Vitamin D2 1,25 (OH)2 <8 pg/mL; Vitamin D3 1,25 (OH)2 43 pg/mL
[2023-05-20 22:06] LABS: PSA, Free 0.14 ng/mL; PSA, Total 0.5 ng/mL (<=4.0)
== END 2023-05-16 08:56 | disposition home or self-care (01) ==
LOC: ANHGOSHLAB 08:56
PROVIDERS: PCP Family Medicine; Visit Provider Nurse Practitioner Family
DX: Z12.5 Encounter for screening for malignant neoplasm of prostate (principal); I10 Essential (primary) hypertension; E55.9 Vitamin D deficiency, unspecified
CPT/HCPCS: 36415; 80053; 80061; 82652; 84153; 84154; 85025; 85055; G0103

== ENCOUNTER 2023-05-19 08:45 | Outpatient (CLI) | payer MEDICARE, SELFPAY ==
--- NOTE | ~2023-05-19 | CT_ITS ---
EXAMINATION:CT diagnostic chest wo con DATE: 05/19/2023 08:59 INDICATION: Other nonspecific abnormal finding in lung field. TECHNIQUE: Computed tomography (CT) of the chest was performed without intravenous contrast. Automate d exposure control and iterative reconstruction technique were employed. The dose-length product (DLP ) was 180.70 mGy-cm. COMPARISON: Chest CT 12/20/2022, PET/CT 02/13/2023 FINDINGS: There is severe emphysema. There is a new 15 mm nodule in right upper lobe. There is a 15 m m nodule in left upper lobe with improvement from 18 mm on 12/20/2022. Again seen is a 4 mm nodule in right upper lobe. No pleural effusion. The heart size is normal. There are coronary artery calcificat ions. No pericardial effusion. There is mild bilateral gynecomastia. There is stable mild mediastinal lymphadenopathy, likely benign. There is severe thoracic spondylosis. There is mild chronic anterior wedging of multiple vertebral bodies. IMPRESSION: 1. New 15 mm nodule in right lung upper lobe, probably granulomatous disease. Noncontrast low-dose ch est CT is recommended in 3 months to exclude malignancy. 2. Improved 15 mm biopsy-proved benign nodule in left lung upper lobe. 3. Severe emphysema. Reviewed, dictated and finalized at location A. MENTAL MACHINE OPERATOR IMPRESSION: 1. New 15 mm nodule in right lung upper lobe, probably granulomatous disease. N oncontrast low-dose chest CT is recommended in 3 months to exclude malignancy. 2. Improved 15 mm biopsy-proved benign nodule in left lung upper lobe. 3. Severe emphysema.
== END 2023-05-19 08:46 | disposition home or self-care (01) ==
PROVIDERS: PCP Family Medicine; Visit Provider Nurse Practitioner Family
DX: R91.8 Other nonspecific abnormal finding of lung field (principal); J43.9 Emphysema, unspecified
CPT/HCPCS: 71250

== ENCOUNTER 2023-08-19 12:48 | Outpatient (CLI) | payer MEDICARE, SELFPAY ==
--- NOTE | ~2023-08-19 | CT_ITS ---
CT Scan of the Chest without Contrast: Clinical Indication: Pulmonary nodule Technique: Contiguous sections were acquired throughout the chest without intravenous contrast. Dose reduction technique was used on this scan by utilizing automated exposure control and iterative recon struction technique. The dose-length product (DLP) was 85.33 mGy-cm. COMPARISON: 05/19/2023 Findings: There is no evidence of any significant mediastinal, hilar or axillary lymphadenopathy. The mediastin al soft tissues appear normal. There is no evidence of pleural or pericardial effusion. Irregular left apical opacity is further decreased from prior exam. 2.5 cm irregular right apical pul monary nodule is mildly increased from prior exam. There is moderate to advanced emphysema. Images through the upper abdomen reveal no abnormalities. Impression: 2.5 cm irregular right apical pulmonary nodule is probably increased from prior exam. Consider tissue sampling to establish a histologic diagnosis. Irregular left apical lesion is further decreased from prior exam. Underlying moderate to advanced emphysema. Reviewed, dictated and finalized at [facility]. [employer]IONS SALES CONSULTANT Impression: 2.5 cm irregular right apical pulmonary nodule is probably increased from prior exam. Consider tissue sampling to establish a histologic diagnosis. Irregular left apical lesion is further decreased from prior exam. Underlying moderate to advanced emphysema.
== END 2023-08-19 12:49 | disposition home or self-care (01) ==
LOC: ANHIMG 12:48
PROVIDERS: PCP Family Medicine; Visit Provider Nurse Practitioner Family
DX: R91.1 Solitary pulmonary nodule (principal); J43.9 Emphysema, unspecified
CPT/HCPCS: 71250

== ENCOUNTER 2023-08-28 11:52 | Outpatient (CLI) | payer MEDICARE, SELFPAY ==
--- NOTE | ~2023-08-28 | PE_ITS ---
EXAMINATION: PET skull to mid thigh DATE: 08/28/2023 14:21 INDICATION: Lung nodule TECHNIQUE: Blood glucose level was 94 mg/dL. 11.091 mCi of 18-fluorodeoxyglucose (18-FDG) was adminis tered i.v. Low dose computed tomography (CT) images were acquired from the base of the brain to the p roximal thighs for attenuation correction and anatomic localization. Positron emission tomography (PE T) images were acquired in the same distribution beginning 60 minutes after injection. Images includi ng fused PET/CT images were reconstructed in axial, coronal, and sagittal planes. Automated exposure control technique was employed. The dose-length product was 502.85mGy-cm. COMPARISON: PET/CT dated 02/13/[address] studies dated 08/19/2023, 05/19/2023 and 12/20/2022 FINDINGS: Head/neck: There is symmetric increased activity in the oral cavity, laryngeal muscles and ocular muscles withou t CT correlate, likely physiologic. No pathologically enlarged cervical lymphadenopathy or suspicious foci of increased FDG uptake in the visualized head or neck. Chest: Severe emphysema. Interval decrease in size of a now 1.6 x 0.9 cm, previously 2.0 x 1.4 cm left apica l nodule with resolution of the prior prominent increased FDG uptake and with interval biopsy demonst rating chronic inflammation fibrosis but with no malignancy. 2.4 x 1.4 cm spiculated right apical nod ule, new since the prior PET/CT with moderate increased FDG uptake of 12.4. This lesion developed in size of 2.2 x 1.1 cm in the interval between the prior PET/CT on 02/13/[address] 3 mo nths prior at which time it measured 2.4 x 1.1 cm. Given the rapid development over 3 months and the lack of significant interval change management coordinator the following 3 months would again favor an infectious/infla mmatory nodule as with the previously noted now resolving nodule at the contralateral left apex. Ther e is a second FDG avid nodule measuring 8 x 7 mm more anteriorly left upper lobe along the lateral ma rgin of the manubrium which developed in the interval between 05/19/2023 and the SUV on 08/19/2023 wit h maximal SUV of 4.7. No other suspicious new, enlarging or FDG avid pulmonary nodules. No interval change in a few normal-sized mediastinal and left hilar lymph nodes mild increased with u nchanged mild increased uptake of 5.1 at the precarinal lymph node and with uptake at the left hilar lymph node of 4.8 which is decreased from 6.4. No new or, enlarging or increasingly FDG avid thoracic lymphadenopathy to suggest metastatic disease. Arch size is normal. Atherosclerotic coronary artery calcific location. No pericardial or pleural effusion. Abdomen/pelvis/proximal thighs: Physiologic renal accumulation and excretion of FDG activity in the kidneys, bladder and along portio ns of ureters. Normal degree and heterogenous pattern of increased uptake throughout the liver withou t radiologic correlate or dominant FDG avid lesion. The gallbladder, pancreas, spleen and bilateral a drenal glands are normal. Mild moderate uptake scattered throughout the bowels without radiologic cor relate, also likely physiologic. Scattered diverticulosis without adjacent from trace stranding to maurer ggest diverticulitis. Prostatomegaly. No other abnormal foci of increased FDG uptake or pathologicall y enlarged lymphadenopathy in the abdomen, pelvis or proximal thighs. Musculoskeletal: Severe cervical and lumbar and moderate thoracic spondylosis. No suspicious lytic, blastic or FDG tanya d bone lesions. IMPRESSION: 1. Interval decrease in size and marked decrease in FDG uptake of a previously biopsied left apical n odule with interval evolution along with pathology from the prior biopsy most consistent with resolvi ng infectious/inflammatory nodule. 2. A couple FDG avid nodules at the right apex, the larger with rapid development over the course of 3 months and relative stability over the subsequent 3 months and with
[2023-08-28 12:17] LABS: Glucose Point of Care 94 mg/dl (65-105)
== END 2023-08-28 11:53 | disposition home or self-care (01) ==
PROVIDERS: PCP Family Medicine; Visit Provider Nurse Practitioner Family
DX: R91.8 Other nonspecific abnormal finding of lung field (principal)
CPT/HCPCS: 78815; A9552

== ENCOUNTER 2023-11-10 10:46 | Outpatient (CLI) | payer MEDICARE, SELFPAY ==
[2023-11-10 19:33] LABS: Basophils Absolute Auto 0.1 K/mm3 (0.0-0.1); Basophils Percent Auto 1.3 % (0.2-1.2); Eosinophils Absolute Auto 0.1 K/mm3 (0-0.3); Eosinophils Percent Auto 1.6 % (0-4.4); Hematocrit 45.5 % (42.0-52.0); Hemoglobin 14.8 g/dL (14.0-18.0); Immature Granulocyte Absolute 0.01 K/mm3 (0.00-0.031); Immature Granulocyte Percent A 0.2 % (0-0.5); Lymphocytes Absolute Auto 1.62 K/mm3 (0.9-3.2); Lymphocytes Percent Auto 25.4 % (18.3-44.2); Mean Corpuscular HGB Conc 32.5 g/dl (32-36); Mean Corpuscular Volume 95.2 fl (80-100); Mean Platelet Volume 9.8 fl (7.4-10.4); Monocytes Absolute Auto 0.6 K/mm3 (0.1-0.6); Monocytes Percent Auto 9.4 % (2.6-8.5); Neutrophils Percent Auto 62.1 % (45.5-73.1); Platelet Count Result 321 k/mm3 (150-375); Red Blood Count 4.78 M/mm3 (4.6-6.20); Red Cell Distribution Width 12.8 % (11.5-14.5); White Blood Count 6.4 K/mm3 (4.5-10.0)
[2023-11-10 20:01] LABS: Alanine Aminotransferase 16 U/L (6-50); Albumin Level 4.6 g/dL (3.5-5.1); Alkaline Phosphatase 52 U/L (38-126); Anion Gap 6 mmol/L (4-12); Aspartate Amino Transferase 26 U/L (17-59); Bilirubin,Total 0.6 mg/dL (0.2-1.3); Blood Urea Nitrogen 13 mg/dL (9-20); Calcium 9.6 mg/dL (8.4-10.2); Carbon Dioxide 31 mmol/L (22-30); Chloride 103 mmol/L (98-107); Cholesterol 151 mg/dL (0-200); Estimated Glomerular Filt Rate > 60; Glucose 95 mg/dL (65-110); HDL Direct 49 mg/dL; Potassium 4.8 mmol/L (3.4-5.0); Sodium 140 mmol/L (137-145); Triglycerides 111 mg/dL (<150)
[2023-11-10 20:15] LABS: LDL Cholesterol Direct 87 mg/dL
[2023-11-12 14:23] LABS: PSA, Free 0.2 ng/mL; PSA, Total 0.7 ng/mL (< OR = 4.0); Percent Free Prostate Spec Ag 29 % (calc) (>25)
[2023-11-14 18:04] LABS: Vitamin D 1,25 (OH)2 Total 39 pg/mL (18-72); Vitamin D2 1,25 (OH)2 <8 pg/mL; Vitamin D3 1,25 (OH)2 39 pg/mL
== END 2023-11-10 10:47 | disposition home or self-care (01) ==
PROVIDERS: PCP Family Medicine; Visit Provider Nurse Practitioner Family
DX: E55.9 Vitamin D deficiency, unspecified (principal); I10 Essential (primary) hypertension; Z12.5 Encounter for screening for malignant neoplasm of prostate
CPT/HCPCS: 36415; 80053; 80061; 82652; 84153; 84154; 85025; G0103

== ENCOUNTER 2023-11-10 10:55 | Outpatient (CLI) | payer MEDICARE, SELFPAY ==
--- NOTE | ~2023-11-10 | XR_ITS ---
Right Shoulder Technique: AP and scapular Y views were obtained. Clinical History: Pain Findings: No fracture or dislocation is seen. Osseous alignment is anatomic. The glenohumeral and acr omioclavicular joint spaces are preserved. Soft tissues are unremarkable. Impression: Unremarkable right shoulder radiographs. Reviewed, dictated and finalized at [facility]. Impression: Unremarkable right shoulder radiographs.
== END 2023-11-10 10:56 ==
LOC: GOSHIMG 10:57
PROVIDERS: PCP Family Medicine; Visit Provider Nurse Practitioner Family
DX: M25.511 Pain in right shoulder (principal)
CPT/HCPCS: 73030

== ENCOUNTER 2023-12-15 07:42 | Outpatient (CLI) | payer MEDICARE, SELFPAY ==
--- NOTE | ~2023-12-15 | CT_ITS ---
CT Scan of the Chest without Contrast: Clinical Indication: COPD Technique: Contiguous sections were acquired throughout the chest without intravenous contrast. Dose reduction technique was used on this scan by utilizing automated exposure control and iterative recon struction technique. The dose-length product (DLP) was 177.18 mGy-cm. COMPARISON: 08/19/2023 Findings: There is no evidence of any significant mediastinal, hilar or axillary lymphadenopathy. The mediastin al soft tissues appear normal. There is no evidence of pleural or pericardial effusion. Moderate to severe emphysema present. Stable spiculated nodular density at the right lung apex, which could reflect chronic scarring. 4 mm nodule at the inferior right upper lobe present (axial image 77). New 7 mm nodularity at the per ipheral right middle lobe (axial image 98). There are patchy airspace opacities at the bilateral lung bases, new from prior exam (axial images 110-121). Images through the upper abdomen reveal no abnormalities. Impression: Multiple new small irregular nodules/airspace opacities, predominantly the lung bases, as detailed ab ove, suggestive of infectious/inflammatory process. Stable spiculated larger nodule/consolidation the right lung apex. Moderate to advanced emphysema. Reviewed, dictated and finalized at location . Impression: Multiple new small irregular nodules/airspace opacities, predominantly the lung bases, as detailed above, suggestive of infectious/inflammatory process. Stable spiculated larger nodule/consolidation the right lung apex. Moderate to advanced emphysema.
== END 2023-12-15 07:43 | disposition home or self-care (01) ==
PROVIDERS: PCP Family Medicine; Visit Provider Nurse Practitioner Family
DX: R91.8 Other nonspecific abnormal finding of lung field (principal); J43.9 Emphysema, unspecified
CPT/HCPCS: 71250

== ENCOUNTER 2024-05-21 08:39 | Outpatient (CLI) | payer MEDICARE, SELFPAY ==
--- NOTE | ~2024-05-21 | XR_ITS ---
EXAMINATION: XR lumbar spine 2-3V DATE: 05/21/2024 08:52 INDICATION: Low back pain TECHNIQUE: Anteroposterior and lateral views of the lumbar spine, and cone-down lateral view of the l umbosacral junction were obtained. COMPARISON: None. FINDINGS: 10 degrees lower thoracic levoscoliosis and 10 degrees lumbar dextroscoliosis. For millimeter retroli sthesis L3 on L4 and 2 mm retrolisthesis L2 on L3 and L4 on L5. Vertebral body heights are normal. Se shivani disc height loss with degenerative endplate changes at L1-L2. Mild to moderate disc height loss at T12-L1, L2-L3 and L3-L4. Mild disc height loss at L5-S1 and T10-T11. Moderate multilevel lumbar fa cet osteoarthritis. Mild bilateral sacroiliac osteoarthritis. Visualized lung bases are clear with no pleural effusion. IMPRESSION: 1. 10 degrees lower thoracic levoscoliosis and 10 degrees lumbar dextroscoliosis. 2. Severe disc height loss with degenerative endplate changes at L1-L2 with otherwise mild to moderat e lumbar and lower thoracic spondylosis. Reviewed, dictated and finalized at location B. S SUPPORT ASSOCIATE IMPRESSION: 1. 10 degrees lower thoracic levoscoliosis and 10 degrees lumbar dextroscoliosi s. 2. Severe disc height loss with degenerative endplate changes at L1-L2 with oth erwise mild to moderate lumbar and lower thoracic spondylosis.
== END 2024-05-21 08:40 | disposition home or self-care (01) ==
LOC: GOSHIMG 08:41
PROVIDERS: PCP Family Medicine; Visit Provider Nurse Practitioner Family
DX: M51.369 Other intervertebral disc degeneration, lumbar region without mention of lumbar back pain or lower extremity pain (principal)
CPT/HCPCS: 72100

== ENCOUNTER 2024-06-07 13:52 | Outpatient (CLI) | payer MEDICARE, SELFPAY ==
--- NOTE | ~2024-06-07 | CT_ITS ---
CT Scan of the Chest without Contrast: Clinical Indication: Nonspecific abnormal finding of lung field Technique: Contiguous sections were acquired throughout the chest without intravenous contrast. Dose reduction technique was used on this scan by utilizing automated exposure control and iterative recon struction technique. The dose-length product (DLP) was 77.15 mGy-cm. COMPARISON: 12/15/2023 Findings: There is no evidence of any significant mediastinal, hilar or axillary lymphadenopathy. The mediastin al soft tissues appear normal. There is no evidence of pleural or pericardial effusion. There is advanced emphysema. Stable biapical/upper lobe scarring. There is focal scarring or atelecta sis right lung base. Additional probably bibasilar nodule seen on prior exam are resolved. Images through the upper abdomen reveal no abnormalities. Impression: Interval resolution of predominantly bibasilar pulmonary nodules from prior exam, consistent with res olving infectious/inflammatory process. Advanced emphysema with areas of chronic scarring, as above. Reviewed, dictated and finalized at location M. KER Impression: Interval resolution of predominantly bibasilar pulmonary nodules from prior exa m, consistent with resolving infectious/inflammatory process. Advanced emphysema with areas of chronic scarring, as above.
== END 2024-06-07 13:53 | disposition home or self-care (01) ==
PROVIDERS: PCP Family Medicine; Visit Provider Nurse Practitioner Family
DX: R91.8 Other nonspecific abnormal finding of lung field (principal); J43.9 Emphysema, unspecified
CPT/HCPCS: 71250

== ENCOUNTER 2024-11-19 09:26 | Outpatient (CLI) | payer MEDICARE, SELFPAY ==
--- OUTSIDE RECORDS SUMMARY | 2024-11-19 09:34 | XMS_ITS | Clinical Summary ---
Author Organization [facility] Address [address] [place] [address] Care Team Providers Care Paper Stacker Name Role Phone Leon Garcia MD Primary Care Provider Source Comments [facility],non-owned Affiliates and Associated Physician Practices is amultiple site organization consisting of ambulatory clinics and hospital sitesin [place], [place], [place] and [place]. This disclosure is being madepursuant to the Care Everywhere program and may not contain all information available regarding this patient. Last updated 18.[facility] Allergies No known active allergies Medications * Be aware that medications may not be up to date on this document. Alwaysverify current medications with the patient. atorvastatin (LIPITOR) 10 MG tablet Take 10 mg by mouth at bedtime Active losartan (COZAAR) 50 MG tablet Take 50 mg by mouth once daily Active DICLOFENAC POTASSIUM PO Active umeclidinium-vi lanterol (ANORO ELLIPTA) 62.5-25 MCG/INH inhaler Inhale 1 puff by mouth once daily Active Social History Tobacco Use Types Packs/Day Years Used Date Smoking Tobacco: Former Cigarettes Q uit: 2014 Smokeless Tobacco: Never Sex and Gender Information Value Date Recorded Sex Assigned at Not on file Legal Sex Male 1:16 PM FURNACE ERECTOR Gender Identity Not on file Sexual Orientation Not on file Last Filed Vital Signs Vital Sign Reading Time Taken Comments Blood Pressure - - Pulse 67 06/04/2019 3:07 PM FURNACE ERECTOR Temperature 36.4 C (97.5 F) 06/04/2019 3:07 PM FURNACE ERECTOR Respiratory Rate 16 06/04/2019 3:07 PM FURNACE ERECTOR Oxygen Saturation 98% 06/04/2019 3:07 PM FURNACE ERECTOR Inhaled Oxygen Concentration - - Weight 87.5 kg (193 lb) 06/04/2019 3:07 PM FURNACE ERECTOR Height 185.4 cm (6' 1 ) 06/04/2019 3:07 PM FURNACE ERECTOR Body Mass Index 25.46 06/04/2019 3:07 PM FURNACE ERECTOR Plan of Treatment Health Maintenance Due Date Last Done Comments COLOGUARD (AGES 45-75) - COL ON CA SCREENING 1956 COLON MONITORING 1956 COLONOSCOPY - COLON CA SCREENING 1956 CT COLONOGRAPHY - COLON CA SCREENING 1956 Colorectal Cancer Screening 1956 FIT - COLON CA SCREENING 1956 FLEX SIG - COLON CA SCREENING 1956 MEDICARE AWV 12 MONTHS 1956 HEPATITIS C SCREENING 04/18/1974 DTAP/TDAP/TD VACCINES (1 - Tdap) 1975 PNEUMOCOCCAL VACCINE 50+ (1 of 1 - PCV) 2006 ZOSTER VACCINE (1 of 2) 2006 SCREENING FOR DIABETES 06/04/2019 AAA SCREENING 2021 COVID-19 VACCINE (1 - 2023-2 5 season) 2024 DEPRESSION SCREENING 07/07/2024 INFLUENZA VACCINE (Season Ended) 2025 Respiratory Syncytial Virus (RSV) Vaccine Pt: or over 60 yrs (1 - 1-dose 75+ series) 2031 HEPATITIS B VACCINE Aged Out No longe r eligible based on patient's age to complete this topic HIB VACCINE Aged Out No longer eligi ble based on patient's age to complete this topic HPV VACCINE Aged Out No longer eligi ble based on patient's age to complete this topic MENINGOCOCCAL (Group B) VACC INE SHARED DECISION-MAKING Aged Out No longer eligibl e based on patient's age to complete this topic MENINGOCOCCAL GROUPS A/C/Y/W VACCINE Aged Out No longer eligible b ased on patient's age to complete this topic Insurance MEDICARE MEDICARE Care Teams Paper Stacker Relationship Specialty Start Date End Date Leon Garcia MD [address] [place] [id number] PCP - General Family Medicine 06/04/19
--- OUTSIDE RECORDS SUMMARY | 2024-11-19 09:34 | XMS_ITS | Clinical Summary ---
Author Organization [facility] Address [facility] [place] [address] Care Team Providers Care Fabrication And Assembly Supervisor Name Role Phone TierneyWinifred NELA Primary Care Provider [phone] Allergies No known active allergies Medications atorvastatin 10 MG tablet Take 10 mg by mouth. Active losartan 50 MG tablet 03/24/2021 Active umeclidinium-kassi anterol 62.5-25 MCG/INH inhaler Inhale 1 puff into the lungs daily. Active loratadine 10 MG tablet 04/26/2021 Active Active Problems No known active problems Immunizations Immunization Administration Dates Next Due Influenza Adult (Generic) 04/28/2019 Pneumococcal (Pneumovax 23) 09/09/2014 Tdap (Generic) 09/09/2014 Family History Medical History Relation Comments Cerebrovascular Accident Father Heart Attack Father Malignant neoplasm of liver Mother Relation Status Comments Father Mother Social History Tobacco Use Types Packs/Day Years Used Date Smoking Tobacco: Former Cigarettes Q uit: 07/07/2014 Smokeless Tobacco: Never Tobacco Cessation:Counseling Given: No Comments:quit Alcohol Use Standard Drinks/Week Comments Not Currently 0 (1 standard drink = 0.6 oz pur e alcohol) Former Sex and Gender Information Value Date Recorded Sex Assigned at Not on file 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[employer] Gender Identity Not on file Sexual Orientation Not on file Last Filed Vital Signs Vital Sign Reading Time Taken Comments Blood Pressure 135/82 07/24/2021 10:09 AM MAINS AND SERVICE SUPERVISOR Pulse 70 07/24/2021 10:09 AM MAINS AND SERVICE SUPERVISOR Temperature 36.5 C (97.7 F) 07/24/2021 10:09 AM MAINS AND SERVICE SUPERVISOR Respiratory Rate 18 07/24/2021 10:09 AM MAINS AND SERVICE SUPERVISOR Oxygen Saturation 95% 07/24/2021 10:09 AM MAINS AND SERVICE SUPERVISOR Inhaled Oxygen Concentration - - Weight 71.7 kg (158 lb) 07/24/2021 10:09 AM MAINS AND SERVICE SUPERVISOR Height 182.9 cm (6') 07/24/2021 10:09 AM MAINS AND SERVICE SUPERVISOR Body Mass Index 21.43 07/24/2021 10:09 AM MAINS AND SERVICE SUPERVISOR Plan of Treatment Health Maintenance Due Date Last Done Comments Colorectal Cancer Screening Colonoscopy (10 Years) 1956 Hepatitis C 1974 Zoster Vaccines (1 of 2) 2006 Pneumococcal Vaccine: 50+ Years (2 of 2 - PCV) 09/10/2015 09/09/2014 Annual Medicare Wellness Visit 2021 COVID-19 Vaccine (3 - 2023-2 5 season) 2024 11/02/2020, 10/05/2020 DTaP, Tdap and Td Vaccines ( 2 - Td or Tdap) 09/09/2024 09/09/2014 RSV Immunization or 60+ Years (1 - 1-dose 75+ series) 2031 Meningococcal B Vaccine Aged Out No l onger eligible based on patient's age to complete this topic Meningococcal Vaccine Aged Out No master rikki eligible based on patient's age to complete this topic RSV Immunizations Under 20 Months Aged Out No longer eligible b ased on patient's age to complete this topic Insurance [facility] MEDICARE Care Teams Fabrication And Assembly Supervisor Relationship Specialty Start Date End Date Winifred Tireney NP PCP - General NURSE PRACTITIONER 04/05/21
[2024-11-19 12:22] LABS: Basophils Absolute Auto 0.1 K/mm3 (0.0-0.1); Basophils Percent Auto 0.8 % (0.2-1.2); Eosinophils Absolute Auto 0.2 K/mm3 (0-0.3); Eosinophils Percent Auto 2.5 % (0-4.4); Hematocrit 41.8 % (42.0-52.0); Hemoglobin 13.7 g/dL (14.0-18.0); Immature Granulocyte Absolute 0.02 K/mm3 (0.00-0.031); Immature Granulocyte Percent A 0.3 % (0-0.5); Lymphocytes Absolute Auto 1.66 K/mm3 (0.9-3.2); Lymphocytes Percent Auto 27.4 % (18.3-44.2); Mean Corpuscular HGB Conc 32.8 g/dl (32-36); Mean Corpuscular Hemoglobin 30.7 pg (26-34); Mean Corpuscular Volume 93.7 fl (80-100); Mean Platelet Volume 9.4 fl (7.4-10.4); Monocytes Absolute Auto 0.5 K/mm3 (0.1-0.6); Monocytes Percent Auto 8.7 % (2.6-8.5); Neutrophils Absolute Auto 3.7 K/mm3 (1.3-6.7); Neutrophils Percent Auto 60.3 % (45.5-73.1); Platelet Count Result 347 k/mm3 (150-375); Red Blood Count 4.46 M/mm3 (4.6-6.20); Red Cell Distribution Width 12.9 % (11.5-14.5); White Blood Count 6.1 K/mm3 (4.5-10.0)
[2024-11-19 12:55] LABS: Alanine Aminotransferase 18 U/L (6-50); Albumin Level 4.2 g/dL (3.5-5.1); Alkaline Phosphatase 56 U/L (38-126); Anion Gap 6 mmol/L (4-12); Aspartate Amino Transferase 38 U/L (17-59); Bilirubin,Total 0.7 mg/dL (0.2-1.3); Blood Urea Nitrogen 12 mg/dL (9-20); Calcium 8.9 mg/dL (8.4-10.2); Carbon Dioxide 29 mmol/L (22-30); Chloride 105 mmol/L (98-107); Cholesterol 150 mg/dL (0-200); Estimated Glomerular Filt Rate > 60; Glucose 98 mg/dL (65-110); HDL Direct 48 mg/dL; Potassium 4.4 mmol/L (3.4-5.0); Sodium 140 mmol/L (137-145); Triglycerides 86 mg/dL (<150)
[2024-11-19 12:56] LABS: Vitamin D 25 Hydroxy 30.1 ng/mL
[2024-11-19 13:01] LABS: Prostate Specific Antigen 0.8 ng/mL (< OR = 4.0)
[2024-11-19 13:10] LABS: Thyroid Stimulating Hormone Reflex 0.803 uIU/mL (0.465-4.68)
[2024-11-19 13:21] LABS: LDL Cholesterol Direct 75 mg/dL
== END 2024-11-19 09:27 | disposition home or self-care (01) ==
PROVIDERS: PCP Family Medicine; Visit Provider Nurse Practitioner Family
DX: E78.5 Hyperlipidemia, unspecified (principal); I10 Essential (primary) hypertension; Z12.5 Encounter for screening for malignant neoplasm of prostate; E55.9 Vitamin D deficiency, unspecified
CPT/HCPCS: 36415; 80053; 80061; 82306; 84153; 84443; 85025; G0103

== ENCOUNTER 2025-04-24 17:05 | Emergency (ER) | payer MEDICARE, SELFPAY ==
--- NOTE | 2025-04-24 17:17 | ECG_ITS ---
Test Date: 2025-04-24 17:21:33 Measurements Intervals [place] Rate: 90 P: 80 [place]: 130 QRS: -48 QRSD: 86 T: 78 QT: 321 QTc: 395 Interpretive Statements SINUS RHYTHM WITH SINUS ARRHYTHMIA LEFT AXIS DEVIATION DELAYED PRECORDIAL R/S TRANSITION BORDERLINE ST-T WAVE ABNORMALITY- HIGH LATERAL LEADS BASELINE ARTIFACT- I, II, III, AVR, AVL, AVF, V1 BORDERLINE ECG No previous ECG available for comparison Electronically Signed On 04-24-2025 20:40:03 CDT by Stevenson Keith D.O.
[2025-04-24 17:25] VITALS: BP 130/88; PULSE 86; RESP 16; TEMP 36.7; O2SAT 99
--- NOTE | 2025-04-24 18:04 | ED_ITS ---
HPI - Chest Pain General Chief Complaint: Chest Pain Stated Complaint: chest pain Time Seen by Provider: 04/24/25 17:30 Source: patient, RN notes reviewed and old records reviewed Mode of arrival: ambulatory Limitations: no limitations History of Present Illness HPI narrative: 70-year-old male patient with history of COPD, hypertension, presents today complaining of lower sternal chest pain intermittently over the past 6 months, worse over the last 2 days. Pain is worse with exertion and better with rest. He is also complaining some sweating that started today. Reports a fever with a T-max of 99.9?. Denies any recent cough or cold symptoms, dizziness or lightheadedness, nausea or vomiting. Denies any worse shortness of breath over his baseline. Currently rates his chest pain 5/10. Denies any cardiac history aside from his hypertension. He does not see a invoicing machine operator. His pain does not radiate. Related Data Allergies Allergy/AdvReac Type Severity Reaction Status Date / Time No Known Allergies Allergy Verified 04/24/25 17:09 [facility] Past Medical History Medical History Environmental allergies Vitamin D deficiency Soft tissue swelling of chest wall Positive colorectal cancer screening using Cologuard test (~11/2021) Hearing loss left ear Emphysema, unspecified COPD (chronic obstructive pulmonary disease) Essential (primary) hypertension Chronic low back pain without sciatica Dyslipidemia Surgical History Surgical History H/O removal of cyst [place] teeth extracted (Unknown) Family History Family History Mother Family history of primary malignant neoplasm of liver, Onset Age: 70 Father Heart attack Cerebrovascular accident Social History Social History Smoking packs per day: 1.5 Smoking cigarettes per day: 30.0 Years smoked: 50 Smoking pack-years: 75.00 Smoking status: Former smoker Tobacco type: cigarettes Second hand tobacco smoke exposure: No Smoking end date: 07/07/14 Alcohol intake: former Substance use: current Substance use type: marijuana Other substance usage details: occasional use Lack of Transportation: No Lack of Food: Never True Current Housing: I Have Housing Concerned About Future Housing: No Difficulty Paying Gas/Electric Bills: No Difficulty Paying for Meds: No Currently Unemployed: No Education: Decline to Answer Difficulty w/ Childcare or Family Care: No Living arrangements: alone Occupation/Education: occupation 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 Please see nursing chart for further information. There is no relevant family history pertinent to the presenting complaint Exam Narrative: GENERAL: Well-appearing, well-nourished, and in no acute distress. HEAD: Normocephalic, atraumatic. EYES: EOMI. No redness or drainage. Conjunctivae normal. ENT: Mucous membranes pink and moist. NECK: Normal AROM. CHEST: No respiratory distress. Clear to auscultation. Chest is nontender to palpation. Pain is not reproducible with palpation of the sternum. HEART: Regular rate and rhythm. No murmur appreciated. Normal peripheral pulses. ABDOMEN: Soft, nontender, nondistended, normal active bowel sounds. EXTREMITIES: Normal range of motion. No edema. SKIN: Warm, dry, no rash. Capillary refill normal. Normal skin turgor. NEURO: No focal deficits. Alert and oriented x3. Gait steady. PSYCH: Normal affect. No signs of depression or anxiety. Course Course Level of Care: Express Care Visit Vital Signs Vital signs: Vital Signs Temperature 98.1 F 04/24/25 17:25 Pulse Rate 86 04/24/25 17:25 Respiratory Rate 16 04/24/25 17:25 Blood Pressure 130/88 04/24/25 17:25 Pulse Oximetry 99 04/24/25 17:25 Temperature 98.1 F 04/24/25 17:25 Pulse Rate 86 04/24/25 17:25 Respiratory Rate 16 04/24/25 17:25 Blood Pressure 130/88 04/24/25 17:25 Pulse Oximetry 99 04/24/25 17:25 Reviewed Transfer Transfered to: [place] Transportation: Other (Private vehicle) Transfer rationale: Chest pain Accepting physician: Steven. Report given to Conor Jaramillo PA-C MDM - Chest Pain MDM Narrative Medical decision making narrative: 70-year-old male patient with history of COPD, hypertension, presents today complaining of lower sternal chest pain intermittently over the past 6 months, worse over the last 2 days. Pain is worse with exertion and better with rest. He is also complaining some sweating that started today. Upon exam, chest is clear to auscultation. Chest is nontender and pain is not reproducible to palpation. As patient's symptoms have worsened over the last couple of days and taking into consideration the duration of his discomfort, recommend ER transfer for further evaluation of his symptoms. Patient agrees with plan. Vital signs stable. Report given to ER provider at [facility] ER. Differential Diagnosis Differential diagnosis: Likely stable angina and other (Musculoskeletal chest pain) ECG Data EKG #1: Attestation: I personally reviewed and interpreted this ECG as follows: ECG completion date: 04/24/25 ECG completion time: 17:21 Prior ECG tracings: available for review Interpretation: Sinus rhythm with sinus arrhythmia. Heart rate 90. HI interval 130 Critical Care Time Critical Care Time Critical Care Time: No Discharge Plan Discharge Clinical Impression: Chest pain Qualifiers: Chest pain type: unspecified Qualified Code(s): R07.9 - Chest pain, unspecified Patient Disposition: Acute Care Hospital Condition: Stable Patient Language: Armenian Prescriptions: No Action albuterol sulfate 2.5 mg /3 mL (0.083 %) solution for nebulization 2.5 mg inhalation Q6H PRN (Reason: shortness of breath or wheezing) Qty: 360 5RF albuterol sulfate 90 mcg/actuation HFA aerosol inhaler 1 inh inhalation Q4H PRN (Reason: shortness of breath or wheezing) Qty: 18 3RF losartan 100 mg tablet 100 mg PO QAM Qty: 90 1RF atorvastatin 10 mg tablet 10 mg PO QHS Qty: 90 1RF Trelegy Ellipta 200-62.5-25 mcg blister with device 1 inh inhalation Q24H Qty: 60 5RF Follow-up/Referrals: Betty Beltran NP [Primary Care Provider, [facility]] Time of Disposition: 17:53
== END 2025-04-24 17:56 | disposition short-term general hospital (02) ==
PROVIDERS: Emergency Provider Nurse Practitioner; PCP Nurse Practitioner Family
DX: R07.9 Chest pain, unspecified (principal); I10 Essential (primary) hypertension; J44.9 Chronic obstructive pulmonary disease, unspecified; E55.9 Vitamin D deficiency, unspecified; E78.5 Hyperlipidemia, unspecified; Z87.891 Personal history of nicotine dependence
CPT/HCPCS: 93005; 99213; G0463

== ENCOUNTER 2025-04-24 18:11 | Emergency (ER) | payer MEDICARE, SELFPAY ==
--- NOTE | ~2025-04-24 | XR_ITS ---
EXAMINATION: XR chest 2V, 04/24/2025 18:45 CDT HISTORY: chest pain COMPARISON: No comparisons available. Technique: 2 views obtained. Findings: COPD changes with scattered small infiltrates most marked in the right upper and left lower lobes. No pneumothorax. Heart is normal size. Mediastinal and hilar contours are within normal limits. Bony thorax no acute abnormality. Impression: Early bilateral pneumonia Reviewed, dictated and finalized at location P. Impression: Early bilateral pneumonia
--- NOTE | 2025-04-24 18:13 | ECG_ITS ---
Test Date: 2025-04-24 18:17:48 Measurements Intervals [place] Rate: 79 P: 84 [place]: 137 QRS: 22 QRSD: 84 T: 86 QT: 339 QTc: 390 Interpretive Statements SINUS RHYTHM CONSIDER RIGHT VENTRICULAR CONDUCTION DELAY BASELINE ARTIFACT- I, II, III, AVR, AVL, AVF, V6 BORDERLINE ECG Compared to ECG 04/24/2025 17:21:33 NO SIGNIFICANT CHANGE Electronically Signed On 04-24-2025 20:48:19 CDT by Stevenson Keith D.O.
[2025-04-24 18:14] VITALS: BP 121/82; PULSE 74; RESP 16; TEMP 36.2; O2SAT 97
--- OUTSIDE RECORDS SUMMARY | 2025-04-24 18:14 | XMS_ITS | Clinical Summary ---
Author Organization [facility] Address [facility] [place] [address] Care Team Providers Care Ceramic Tiler Name Role Phone NiallWinifred NELA Primary Care Provider [phone] Allergies No known active allergies Medications atorvastatin [...] on file Legal Sex Male 5:35 AM [facility] Gender Identity Not on file Sexual Orientation Not on file Last Filed Vital Signs Vital Sign Reading Time Taken Comments Blood Pressure 135/82 07/24/2021 10:09 AM [employer] Pulse 70 07/24/2021 10:09 AM [employer] Temperature 36.5 C (97.7 F) 07/24/2021 10:09 AM [employer] [facility] Respiratory Rate 18 07/24/2021 10:09 AM [employer] [facility] Oxygen Saturation 95% 07/24/2021 10:09 AM [employer] Inhaled Oxygen Concentration - - Weight 71.7 kg (158 lb) 07/24/2021 10:09 AM [employer] Height 182.9 cm (6') 07/24/2021 10:09 AM [facility] Body Mass Index 21.43 07/24/2021 10:09 AM [facility] Plan of Treatment Health Maintenance Due Date Last Done Comments Colorectal Cancer Screening Colonoscopy (10 Years) 1956 Hepatitis C 1974 Zoster Vaccines (1 of 2) 2006 Pneumococcal Vaccine: 50+ Years (2 of 2 - PCV) 09/10/2015 09/09/2014 Annual Medicare Wellness Visit 2021 DTaP, Tdap and Td Vaccines ( 2 - Td or Tdap) 09/09/2024 09/09/2014 COVID-19 Vaccine (3 - 2024-2 6 season) 2025 11/02/2020, 10/05/2020 Influenza Adult (#1) 2025 04/28/2019 RSV Immunization or 60+ Years (1 - 1-dose 75+ series) 2031 Hepatitis A Vaccines Aged Out No long er eligible based on patient's age to complete this topic Meningococcal B Vaccine Aged Out No l onger eligible based on patient's age to complete this topic Meningococcal Vaccine Aged Out No master rikki eligible based on patient's age to complete this topic RSV Immunizations Under 20 Months Aged Out No longer eligible b ased on patient's age to complete this topic Insurance [facility] MEDICARE Care Teams Ceramic Tiler Relationship Specialty Start Date End Date Winifred Tierney NP PCP - General NURSE PRACTITIONER 04/05/21
[2025-04-24 18:32] LABS: Hematocrit 40.6 % (42.0-52.0); Hemoglobin 13.6 g/dL (14.0-18.0); Immature Granulocyte Percent A 0.4 % (0-0.5); Lymphocytes Absolute Auto 1.75 K/mm3 (0.9-3.2); Mean Corpuscular HGB Conc 33.5 g/dl (32-36); Mean Corpuscular Hemoglobin 31.1 pg (26-34); Mean Corpuscular Volume 92.9 fl (80-100); Nucleated Red Blood Cells Absolute Auto 0.000 K/mm3 (0.0-0.012); Nucleated Red Blood Cells Perc 0.0 % (0.0-0.2); Platelet Count Result 392 k/mm3 (150-375); Red Blood Count 4.37 M/mm3 (4.6-6.20); White Blood Count 9.9 K/mm3 (4.5-10.0)
[2025-04-24 18:44] LABS: Alanine Aminotransferase 19 U/L (6-50); Albumin Level 4.4 g/dL (3.5-5.1); Alkaline Phosphatase 79 U/L (38-126); Anion Gap 12 mmol/L (4-12); Aspartate Amino Transferase 25 U/L (17-59); Bilirubin,Total 0.6 mg/dL (0.2-1.3); Blood Urea Nitrogen 18 mg/dL (9-20); Calcium 9.5 mg/dL (8.4-10.2); Carbon Dioxide 25 mmol/L (22-30); Chloride 103 mmol/L (98-107); Estimated CRCL calculation 52 ml/min; Estimated Glomerular Filt Rate > 60; Glucose 108 mg/dL (65-110); Lipase 49 U/L (23-300); Potassium 4.0 mmol/L (3.4-5.0); Sodium 140 mmol/L (137-145); Total Protein 8.2 g/dL (6.3-8.2)
[2025-04-24 18:54] LABS: Troponin I < 0.012 ng/mL (0.000-0.034)
[2025-04-24 18:58] LABS: INR 1.0; Partial Thromboplastin Time 35.0 Seconds (22.3-36.8); Prothrombin Time 13.6 Seconds (11.1-14.7)
[2025-04-24 21:51] VITALS: BP 141/86; PULSE 63; RESP 12; O2SAT 99
[2025-04-24 21:52] VITALS: PULSE 65; RESP 12; O2SAT 100
--- NOTE | 2025-04-24 21:53 | ECG_ITS ---
Test Date: 2025-04-24 22:36:16 Measurements Intervals [place] Rate: 65 P: 74 [place]: 150 QRS: 33 QRSD: 80 T: 70 QT: 375 QTc: 391 Interpretive Statements SINUS RHYTHM CANNOT R/O SEPTAL INFARCT, AGE INDETERMINATE BASELINE ARTIFACT- I, II, III, AVR, AVL, AVF, V1-V6 ABNORMAL ECG Compared to ECG 04/24/2025 18:17:48 NO SIGNIFICANT CHANGE Electronically Signed On 04-25-2025 06:19:04 CDT by Stevenson Keith D.O.
--- OUTSIDE RECORDS SUMMARY | 2025-04-24 22:21 | XMS_ITS | Clinical Summary ---
Author Organization [facility] Address [facility] [place] [address] Care Team Providers Care Oil Field Worker Name Role Phone NiallWinifred NELA Primary Care Provider [phone] Allergies No known active allergies Medications atorvastatin [...] on file Legal Sex Male 5:35 AM SALES SUPPORT COORDINATOR Gender Identity Not on file Sexual Orientation Not on file Last Filed Vital Signs Vital Sign Reading Time Taken Comments Blood Pressure 135/82 07/24/2021 10:09 AM SALES SUPPORT COORDINATOR Pulse 70 07/24/2021 10:09 AM SALES SUPPORT COORDINATOR Temperature 36.5 C (97.7 F) 07/24/2021 10:09 AM SALES SUPPORT COORDINATOR Respiratory Rate 18 07/24/2021 10:09 AM SALES SUPPORT COORDINATOR Oxygen Saturation 95% 07/24/2021 10:09 AM SALES SUPPORT COORDINATOR Inhaled Oxygen Concentration - - Weight 71.7 kg (158 lb) 07/24/2021 10:09 AM SALES SUPPORT COORDINATOR Height 182.9 cm (6') 07/24/2021 10:09 AM SALES SUPPORT COORDINATOR Body Mass Index 21.43 07/24/2021 10:09 AM SALES SUPPORT COORDINATOR Plan of Treatment Health Maintenance Due Date [...] patient's age to complete this topic Insurance [facility] MEDICARE Care Teams Oil Field Worker Relationship Specialty Start Date End Date Winifred Tierney NP PCP - General NURSE PRACTITIONER 04/05/21
[2025-04-24 22:25] LABS: Troponin I < 0.012 ng/mL (0.000-0.034)
--- NOTE | 2025-04-24 22:50 | ED.CHESTPAIN ---
HPI - Chest Pain General Chief Complaint: Chest Pain Stated Complaint: chest pain Time Seen by Provider: 04/24/25 21:55 Source: patient Mode of arrival: ambulatory Limitations: no limitations History of Present Illness HPI narrative: This is a 70-year-old male that presents to the emergency department chest pain. Reports this is been ongoing over the last 5 months. Worsening last couple of days. Also reports a cough and fever. Related Data Allergies Allergy/AdvReac Type Severity Reaction Status Date / Time No Known Allergies Allergy Verified 04/24/25 18:16 Review of Systems Review of Systems: All systems reviewed & are unremarkable except as noted in HPI and below PMFSH Past Medical History Medical History Environmental allergies Vitamin D deficiency Soft tissue swelling of chest wall Positive colorectal cancer screening using Cologuard test (~11/2021) Hearing loss left ear Emphysema, unspecified COPD (chronic obstructive pulmonary disease) Essential (primary) hypertension Chronic low back pain without sciatica Dyslipidemia Surgical History Surgical History H/O removal of cyst [place] teeth extracted (Unknown) Family History Family History Mother Family history of primary malignant neoplasm of liver, Onset Age: 70 Father Heart attack Cerebrovascular accident Social History Social History Smoking packs per day: 1.5 Smoking cigarettes per day: 30.0 Years smoked: 50 Smoking pack-years: 75.00 Smoking status: Former smoker Tobacco type: cigarettes Second hand tobacco smoke exposure: No Smoking end date: 07/07/14 Alcohol intake: former Substance use: current Substance use type: marijuana Other substance usage details: occasional use Lack of Transportation: No Lack of Food: Never True Current Housing: I Have Housing Concerned About Future Housing: No Difficulty Paying Gas/Electric Bills: No Difficulty Paying for Meds: No Currently Unemployed: No Education: Decline to Answer Difficulty w/ Childcare or Family Care: No Living arrangements: alone Occupation/Education: occupation 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 HEAD: Normocephalic, atraumatic. EYES: EOMI. ENT: Nares clear, no rhinorrhea or epistaxis. Mucous membranes moist. Oropharynx without tonsillar hypertrophy exudate or other lesions. NECK: Supple. No adenopathy or masses. CHEST: Clear to auscultation. No respiratory distress. No wheezes rales or rhonchi HEART: Regular rate and rhythm. No murmur heard. Normal peripheral pulses. EXTREMITIES: Normal range of motion. No edema. SKIN: Warm, dry, no rash. NEURO: No focal deficits. Alert and oriented x3. PSYCH: Normal mood and affect Course Vital Signs Vital signs: Vital Signs Temperature 97.1 F L 04/24/25 18:14 Pulse Rate 74 04/24/25 18:14 Respiratory Rate 16 04/24/25 18:14 Blood Pressure 121/82 04/24/25 18:14 Pulse Oximetry 97 04/24/25 18:14 Temperature 97.1 F L 04/24/25 18:14 Pulse Rate 74 04/24/25 18:14 Respiratory Rate 16 04/24/25 18:14 Blood Pressure 121/82 04/24/25 18:14 Pulse Oximetry 97 04/24/25 18:14 MDM - Chest Pain MDM Narrative Medical decision making narrative: Patient presents to the emergency department for chest pain. Reports this has been ongoing for several months. Reports associated fever and cough the last couple of days. Patient is afebrile and nontoxic appearing. Cbc without leukocytosis. Metabolic panel without concerning findings. EKG without acute ST changes, his baseline and 3 hour troponin are negative. D-dimer is not elevated. Chest x-ray showing pneumonia. Patient will be started on oral antibiotics. Instructed to have follow-up with his PCP. Given warnings to return to the ER Differential Diagnosis Differential diagnosis: Likely stable angina, atypical chest pain, costochondritis and other (pneumonia, PE) Lab Data Attestation: I reviewed the patient's lab results. 04/24/25 18:24 04/24/25 18:24 Labs: Lab Results 04/24/25 04/24/25 04/24/25 Range/Units 18:24 21:51 22:42 WBC 9.9 (4.5-10.0) K/mm3 RBC 4.37 L (4.6-6.20) M/mm3 Hgb 13.6 L (14.0-18.0) g/dL Hct 40.6 L (42.0-52.0) % MCV 92.9 (80-100) fl MCH 31.1 (26-34) pg MCHC 33.5 (32-36) g/dl RDW 12.9 (11.5-14.5) % Plt Count 392 H (150-375) k/mm3 MPV 9.0 (7.4-10.4) fl Immature Gran % (Auto) 0.4 (0-0.5) % Neut % (Auto) 70.1 (45.5-73.1) % Lymph % (Auto) 17.7 L (18.3-44.2) % Jack % (Auto) 10.3 H (2.6-8.5) % Eos % (Auto) 1.0 (0-4.4) % Baso % (Auto) 0.5 (0.2-1.2) % Lymph # (Auto) 1.75 (0.9-3.2) K/mm3 Jack # (Auto) 1.0 H (0.1-0.6) K/mm3 Eos # (Auto) 0.1 (0-0.3) K/mm3 Baso # (Auto) 0.1 (0.0-0.1) K/mm3 Abs Immat Gran (auto) 0.04 H (0.00-0.031) K/mm3 Absolute Neuts (auto) 6.9 H (1.3-6.7) K/mm3 Absolute Nucleated RBC 0.000 (0.0-0.012) K/mm3 Nucleated RBC % 0.0 (0.0-0.2) % PT 13.6 (11.1-14.7) Seconds INR 1.0 APTT 35.0 (22.3-36.8) Seconds D-Dimer 0.44 (<0.48) ug/mL Sodium 140 (137-145) mmol/L Potassium 4.0 (3.4-5.0) mmol/L Chloride 103 (98-107) mmol/L Carbon Dioxide 25 (22-30) mmol/L Anion Gap 12 (4-12) mmol/L BUN 18 (9-20) mg/dL Creatinine 1.14 (0.7-1.3) mg/dL Estim Creat Clear Calc 52 ml/min Estimated GFR > 60 (59 - ) Glucose 108 (65-110) mg/dL Calcium 9.5 (8.4-10.2) mg/dL Total Bilirubin 0.6 (0.2-1.3) mg/dL AST 25 (17-59) U/L ALT 19 (6-50) U/L Alkaline Phosphatase 79 (38-126) U/L Troponin I < 0.012 < 0.012 (0.000-0.034) ng/mL Total Protein 8.2 (6.3-8.2) g/dL Albumin 4.4 (3.5-5.1) g/dL Lipase 49 (23-300) U/L Imaging Data Radiologist's impression: ITS Impressions Chest X-Ray 04/24/25 19:00 Impression: Early bilateral pneumonia ECG Data EKG #1: ECG completion date: 04/24/25 EKG Interpretation: normal rate, sinus rhythm, no ST changes and normal QT Critical Care Time Critical Care Time Critical Care Time: No Discharge Plan Discharge Clinical Impression: Pneumonia Qualifiers: Pneumonia type: due to unspecified organism Laterality: bilateral Lung location: unspecified part of lung Qualified Code(s): J18.9 - Pneumonia, unspecified organism Patient Disposition: Home Condition: Stable Instructions: Chest Pain (ED), Community Acquired Pneumonia (ED) Additional Instructions: Return to the emergency department for worsening symptoms, or any other concerns Take oral antibiotics as prescribed Follow up with primary care doctor Patient Language: Tongan Prescriptions: New azithromycin [Zithromax] 250 mg tablet See Rx Instructions .ROUTE .COMPLEX Qty: 6 0RF Rx Instructions: For 250 mg dose pack: take 500 mg today (day 1), then 250 mg for 4 days (days 2-5) amoxicillin-pot clavulanate 875-125 mg tablet 1 tablet PO Q12H 5 Days Qty: 10 0RF No Action albuterol sulfate 2.5 mg /3 mL (0.083 %) solution for nebulization 2.5 mg inhalation Q6H PRN (Reason: shortness of breath or wheezing) Qty: 360 5RF albuterol sulfate 90 mcg/actuation HFA aerosol inhaler 1 inh inhalation Q4H PRN (Reason: shortness of breath or wheezing) Qty: 18 3RF losartan 100 mg tablet 100 mg PO QAM Qty: 90 1RF atorvastatin 10 mg tablet 10 mg PO QHS Qty: 90 1RF Trelegy Ellipta 200-62.5-25 mcg blister with device 1 inh inhalation Q24H Qty: 60 5RF Follow-up/Referrals: Betty Beltran NP [Primary Care Provider, Family Practice] Quality HEART score for chest pain patients History: slightly suspicious ECG: normal Age: > or = to 65 years Risk factors: 1 or 2 risk factors Troponin: < or = to 1x normal limit Heart score: 3
[2025-04-24 23:03] VITALS: PULSE 70; RESP 12; O2SAT 99
[2025-04-24 23:15] VITALS: PULSE 74; RESP 17; O2SAT 98
[2025-04-25 00:07] VITALS: PULSE 69; RESP 12; O2SAT 97
[2025-04-25 00:15] VITALS: PULSE 69; RESP 15; O2SAT 98
[2025-04-25 00:30] VITALS: PULSE 73; RESP 16; O2SAT 97
[2025-04-25 00:45] VITALS: BP 130/84; PULSE 67; RESP 15; O2SAT 99
--- NOTE | 2025-04-25 08:55 | ECG_ITS ---
Test Date: 2025-04-24 22:43:08 Measurements Intervals [place] Rate: 62 P: 66 [place]: 159 QRS: 15 QRSD: 75 T: 68 QT: 361 QTc: 368 Interpretive Statements SINUS RHYTHM BASELINE ARTIFACT- I, II, III, AVR, AVL, AVF NORMAL ECG Compared to ECG 04/24/2025 22:36:16 NO SIGNIFICANT CHANGE Electronically Signed On 04-25-2025 10:37:53 CDT by Stevenson Keith D.O.
== END 2025-04-25 00:59 | disposition home or self-care (01) ==
PROVIDERS: Emergency Medicine; Emergency Provider Physician Assistant; PCP Nurse Practitioner Family
DX: J18.9 Pneumonia, unspecified organism (principal); I10 Essential (primary) hypertension; E55.9 Vitamin D deficiency, unspecified; E78.5 Hyperlipidemia, unspecified; J43.9 Emphysema, unspecified; Z87.891 Personal history of nicotine dependence; Z79.899 Other long term (current) drug therapy; R94.31 Abnormal electrocardiogram [ECG] [EKG]
CPT/HCPCS: 36415; 71046; 80053; 83690; 84484; 85025; 85380; 85610; 85730; 93005; 99284

== ENCOUNTER 2025-05-02 09:22 | Outpatient (CLI) | payer MEDICARE, SELFPAY ==
--- NOTE | ~2025-05-02 | XR_ITS ---
EXAMINATION: XR chest 2V, 05/02/2025 9:41 CDT HISTORY: Pneumonia, unspecified organism, chest pain x 2 weeks, sob COMPARISON: No comparisons available. Technique: 2 views obtained. Findings: There are scattered bilateral small infiltrates. COPD changes noted. No pneumothorax. Heart is normal size. Mediastinal and hilar contours are within normal limits. Bony thorax no acute abnormality. Impression: Bilateral pneumonia. The findings appear minimally progressed compared to the previous study. Reviewed, dictated and finalized at location P. Impression: Bilateral pneumonia. The findings appear minimally progressed compared to the [facility] study.
== END 2025-05-02 09:23 | disposition home or self-care (01) ==
LOC: GOSHIMG 09:23
PROVIDERS: PCP Nurse Practitioner Family; Visit Provider Nurse Practitioner Family
DX: J18.9 Pneumonia, unspecified organism (principal); J44.9 Chronic obstructive pulmonary disease, unspecified; J43.9 Emphysema, unspecified
CPT/HCPCS: 71046

== ENCOUNTER 2025-05-13 13:01 | Outpatient (CLI) | payer MEDICARE, SELFPAY ==
--- NOTE | ~2025-05-13 | XR_ITS ---
Clinical history:Pneumonia. EXAM:Chest 2 views TECHNIQUE: Frontal and lateral images of the chest were obtained. Comparisons:01/02/2023 FINDINGS: Heart is unenlarged. No pneumothorax. No pleural effusion. No free air the diaphragm. There is a 2.0 x 5.5 cm masslike consolidation in the right upper lobe. IMPRESSION: 1.There is a 2.0 x 5.5 cm masslike consolidation in the right upper lobe. Differential includes focal pneumonia, atelectasis/scarring or a malignant process. A chest CT with contrast is recommended. Reviewed, dictated and finalized at location Q. ING PIPE MAKER IMPRESSION: 1.There is a 2.0 x 5.5 cm masslike consolidation in the right upper lobe. Diffe rential includes focal pneumonia, atelectasis/scarring or a malignant process. A chest CT with contrast is recommended.
== END 2025-05-13 13:02 | disposition home or self-care (01) ==
PROVIDERS: PCP Family Medicine; Visit Provider Nurse Practitioner Family
DX: J18.9 Pneumonia, unspecified organism (principal)
CPT/HCPCS: 71046

== ENCOUNTER 2025-05-13 15:36 | Outpatient (CLI) | payer MEDICARE, SELFPAY ==
--- NOTE | ~2025-05-13 | CT_ITS ---
EXAMINATION:CT diagnostic chest w con DATE: 05/13/2025 16:07 INDICATION: Abnormal finding TECHNIQUE: Computed tomography (CT) of the chest was performed with intravenous contrast. The dose-length product (DLP) was 149.88 mGy-cm. COMPARISON: June 07, [address] and recent chest x-ray from May 13. FINDINGS: Fibrosing nodular appearing changes in the posterolateral margin of the right upper lobe slightly increased in spiculation, as well as adjacent strandy changes with 2.0 x 1.3 cm somewhat discretely defined focus as seen on image 42 series 4. 10 mm slightly spiculated appearing partially groundglass opacified nodular focus anterior right lung, image 81 series 4 also appears more prominent. Severe diffuse emphysematous changes throughout both lung mcclellan, and peripheral air cysts formation again noted. Heart and great vessels appear stable. No bulky lymphadenopathy or masses. No acute process seen in the visualized portions of the upper abdomen. Bony thorax appears intact. IMPRESSION: 1. Increased prominence of fibrosing nodular appearing changes in the right upper lobe involving the apical region, as well as the anterior basilar portion. Findings could represent progression in fibrosing changes/retraction of the lung parenchyma, however malignant process is not excluded. Short-term interval follow-up chest CT, in 3 months, or alternatively PET/CT recommended. 2. Severe emphysematous changes throughout both lung mcclellan not grossly changed. Reviewed, dictated and finalized at location A. T OIL OPERATOR IMPRESSION: 1. Increased prominence of fibrosing nodular appearing changes in the right upp er lobe involving the apical region, as well as the anterior basilar portion. F indings could represent progression in fibrosing changes/retraction of the lung parenchyma, however malignant process is not excluded. Short-term interval fol low-up chest CT, in 3 months, or alternatively PET/CT recommended. 2. Severe emphysematous changes throughout both lung mcclellan not grossly changed .
--- OUTSIDE RECORDS SUMMARY | 2025-05-13 15:39 | XMS_ITS | Clinical Summary ---
Author Organization [facility] Address [facility] [place] [address] Care Team Providers Care Sand Hauler Name Role Phone NiallWinifred NELA Primary Care Provider [phone] Allergies No known active allergies Medications atorvastatin [...] on file Legal Sex Male 5:35 AM CAKE MIXER Gender Identity Not on file Sexual Orientation Not on file Last Filed Vital Signs Vital Sign Reading Time Taken Comments Blood Pressure 135/82 07/24/2021 10:09 AM CAKE MIXER Pulse 70 07/24/2021 10:09 AM CAKE MIXER Temperature 36.5 C (97.7 F) 07/24/2021 10:09 AM CAKE MIXER Respiratory Rate 18 07/24/2021 10:09 AM CAKE MIXER Oxygen Saturation 95% 07/24/2021 10:09 AM CAKE MIXER Inhaled Oxygen Concentration - - Weight 71.7 kg (158 lb) 07/24/2021 10:09 AM CAKE MIXER Height 182.9 cm (6') 07/24/2021 10:09 AM CAKE MIXER Body Mass Index 21.43 07/24/2021 10:09 AM CAKE MIXER Plan of Treatment Health Maintenance Due Date [...] patient's age to complete this topic Insurance [facility] MEDICARE Care Teams Sand Hauler Relationship Specialty Start Date End Date Winifred Tierney NP PCP - General NURSE PRACTITIONER 04/05/21
== END 2025-05-13 15:37 | disposition home or self-care (01) ==
PROVIDERS: PCP Family Medicine; Visit Provider Nurse Practitioner Family
DX: R91.8 Other nonspecific abnormal finding of lung field (principal); J18.9 Pneumonia, unspecified organism; J44.9 Chronic obstructive pulmonary disease, unspecified
CPT/HCPCS: 71260; Q9967

== ENCOUNTER 2025-05-25 08:09 | Outpatient (CLI) | payer MEDICARE, SELFPAY ==
[2025-05-25 13:10] LABS: Hematocrit 41.7 % (42.0-52.0); Hemoglobin 13.5 g/dL (14.0-18.0); Immature Granulocyte Percent A 0.3 % (0-0.5); Lymphocytes Absolute Auto 1.56 K/mm3 (0.9-3.2); Mean Corpuscular HGB Conc 32.4 g/dl (32-36); Mean Corpuscular Hemoglobin 31.5 pg (26-34); Mean Corpuscular Volume 97.2 fl (80-100); Nucleated Red Blood Cells Absolute Auto 0.000 K/mm3 (0.0-0.012); Nucleated Red Blood Cells Perc 0.0 % (0.0-0.2); Platelet Count Result 319 k/mm3 (150-375); Red Blood Count 4.29 M/mm3 (4.6-6.20); White Blood Count 6.3 K/mm3 (4.5-10.0)
[2025-05-25 16:00] LABS: Thyroid Stimulating Hormone Reflex 1.010 uIU/mL (0.465-4.68)
[2025-05-25 17:41] LABS: Alanine Aminotransferase 22 U/L (6-50); Albumin Level 4.5 g/dL (3.5-5.1); Alkaline Phosphatase 56 U/L (38-126); Anion Gap 7 mmol/L (4-12); Aspartate Amino Transferase 31 U/L (17-59); Bilirubin,Total 0.8 mg/dL (0.2-1.3); Blood Urea Nitrogen 21 mg/dL (9-20); Calcium 9.1 mg/dL (8.4-10.2); Carbon Dioxide 26 mmol/L (22-30); Chloride 104 mmol/L (98-107); Cholesterol 182 mg/dL (0-200); Estimated Glomerular Filt Rate > 60; Glucose 68 mg/dL (65-110); HDL Direct 60 mg/dL; Magnesium 2.4 mg/dL (1.6-2.3); Potassium 4.2 mmol/L (3.4-5.0); Sodium 137 mmol/L (137-145); Total Protein 7.5 g/dL (6.3-8.2); Triglycerides 75 mg/dL (<150)
[2025-05-25 18:41] LABS: Vitamin B12 515.0 pg/mL (239-931)
[2025-05-25 20:25] LABS: Hemoglobin A1C 5.5 % (<5.7)
== END 2025-05-25 08:10 | disposition home or self-care (01) ==
PROVIDERS: PCP Family Medicine; Visit Provider Nurse Practitioner Family
DX: E78.5 Hyperlipidemia, unspecified (principal); I10 Essential (primary) hypertension; R73.9 Hyperglycemia, unspecified; E55.9 Vitamin D deficiency, unspecified
CPT/HCPCS: 36415; 80053; 80061; 82306; 82607; 83036; 83735; 84443; 85025

== ENCOUNTER 2025-06-07 09:55 | Outpatient (CLI) | payer MEDICARE, SELFPAY ==
--- OUTSIDE RECORDS SUMMARY | 2025-06-07 10:47 | XMS_ITS | Clinical Summary ---
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 Gender Identity Not on file Sexual Orientation Not on file Last Filed Vital Signs Vital Sign Reading Time Taken Comments Blood Pressure 135/82 07/24/2021 10:09 AM STITCHER UTILITY Pulse 70 07/24/2021 10:09 AM STITCHER UTILITY Temperature 36.5 C (97.7 F) 07/24/2021 10:09 AM STITCHER UTILITY Respiratory Rate 18 07/24/2021 10:09 AM STITCHER UTILITY Oxygen Saturation 95% 07/24/2021 10:09 AM STITCHER UTILITY Inhaled Oxygen Concentration - - Weight 71.7 kg (158 lb) 07/24/2021 10:09 AM STITCHER UTILITY Height 182.9 cm (6') 07/24/2021 10:09 AM STITCHER UTILITY Body Mass Index 21.43 07/24/2021 10:09 AM STITCHER UTILITY Plan of Treatment Health Maintenance Due Date [...] patient's age to complete this topic Insurance [facility] MEDICARE Care Teams Assembler Installer General Relationship Specialty Start Date End Date Winifred Tierney NP PCP - General NURSE PRACTITIONER 04/05/21
--- OUTSIDE RECORDS SUMMARY | 2025-06-07 10:47 | XMS_ITS | Clinical Summary ---
Author Organization [facility] Address [address] [place] [address] Care Team Providers Care Progressive Care Nurse Name Role Phone Leon Garcia MD Primary Care Provider Source Comments [facility],non-owned Affiliates and Associated Physician Practices is amultiple site organization consisting of ambulatory clinics and hospital sitesin [place], [place], [place] and [place]. This disclosure is being madepursuant to the Care Everywhere program and may not contain all information available regarding this patient. Last updated 18.[facility] Allergies No known active allergies Medications * [...] Years Used Date Smoking Tobacco: Former Cigarettes 0 Q uit: 2014 Smokeless Tobacco: Never Sex and Gender Information Value Date Recorded Sex Assigned at Not on file Legal Sex Male 1:16 PM PEDIATRIC OCCUPATIONAL THERAPIST Gender Identity Not on file Sexual Orientation Not on file Last Filed Vital Signs Vital Sign Reading Time Taken Comments Blood Pressure - - Pulse 67 06/04/2019 3:07 PM PEDIATRIC OCCUPATIONAL THERAPIST Temperature 36.4 C (97.5 F) 06/04/2019 3:07 PM PEDIATRIC OCCUPATIONAL THERAPIST Respiratory Rate 16 06/04/2019 3:07 PM PEDIATRIC OCCUPATIONAL THERAPIST Oxygen Saturation 98% 06/04/2019 3:07 PM PEDIATRIC OCCUPATIONAL THERAPIST Inhaled Oxygen Concentration - - Weight 87.5 kg (193 lb) 06/04/2019 3:07 PM PEDIATRIC OCCUPATIONAL THERAPIST Height 185.4 cm (6' 1) 06/04/2019 3:07 PM PEDIATRIC OCCUPATIONAL THERAPIST Body Mass Index 25.46 06/04/2019 3:07 PM PEDIATRIC OCCUPATIONAL THERAPIST Plan of Treatment Health Maintenance Due Date [...] SCREENING FOR DIABETES 06/04/2019 AAA SCREENING 2021 DEPRESSION SCREENING 07/07/2024 COVID-19 VACCINE (1 - 2024-2 6 season) 2025 INFLUENZA VACCINE (#1) 2025 Respiratory Syncytial Virus (RSV) Vaccine Pt: [...] this topic Insurance MEDICARE MEDICARE Care Teams Progressive Care Nurse Relationship Specialty Start Date End Date Leon Garcia MD [address] [place] [address] PCP - General Family Medicine 06/04/19
--- NOTE | 2025-06-08 21:31 | WPDPFTINT ---
PFT Procedure Performed PFT Procedure Performed Spirometry with Pre/Post Bronchodilator Plethysmography (Lung Vol) Diffusing Cap (DLCO) Flow Vol Loop PFT Interpretation DOS: 06/07/2025 REQUESTING: Nedra Noriega MD REASON FOR TESTING: COPD PULMONARY FUNCTION TESTS Results are reliable and reproducible. Repeatability of spirometry FEV1 maneuver pre and post bronchodilator is Grade A. GLI 2012 reference equations were used. Spirometry: The pre-bronchodilator FEV1 is 1.54 L, 44%, severely reduced. The pre-bronchodilator FVC is 4.03 L, 88%, normal. The FEV1/FVC ratio is 38%, reduced, consistent with airflow obstruction. After bronchodilator, the FEV1 is 1.61 L, 46%, +4. The post-bronchodilator FVC is 4.21 L, 91%, +4. The FEV1/FVC ratio is 38%. Lung volumes: The total lung capacity is 9.15 L, 123%, mild hyperinflation. The functional residual capacity is 6.45 L, 162%, moderately increased. The residual volume is 4.94 L, 194%, severe air trapping. The RV/TLC is 54%. Airway resistance is increased. Diffusion: DLCO is 12.6, 46%, moderately decreased. The DLCO/VA is 2.40, 62%, mildly decreased. Flow volume loop: The flow volume loop shows coving in the expiratory limb. IMPRESSION: This study shows extremely severe airflow obstruction without significant response to bronchodilator, mild hyperinflation, severe air trapping, moderate diffusion impairment which partially corrects for alveolar volume. 03/04/2023 previous study shows progressive decline in the FEV1, FVC, DLCO and DLCO /VA. FEV1 was 1.82 L, 51% now decreased 280 mils, 1.54 and 44%. the FVC was 4.35 L, 92% now 4.03 L, 88%.The total lung capacity, FRC, and residual volumes are similarly elevated compared to prior testing. DLCO has further declined, previously was 16.3 and 59%, now 12.6 and 46%. The DLCO/VA is 2.40, 62% mildly decreased which is new; previously was 2.70 and 68%, normal. Nedra Noriega MD
--- NOTE | 2025-06-08 21:40 | WPDSIXMINUTE ---
Six Minute Walk Procedure Procedure Performed Pulmonary Stress Test (6 min walk) Six Minute Walk Six Minute Walk: DOS: 06/07/2025 REQUESTING: Nedra Noriega MD REASON FOR TESTING: COPD This is a 6 minute walk test. The test was performed and interpreted in accordance with the 2014 ERS/ATS task force guidelines. The patient was tested on room air without any walking aids. The patient's resting room air oxygen saturation measured by pulse oximetry was 95% and heart rate was 103 bpm. Patient ambulated for 382 meters/1250 feet 93-95%. Heart rate at the end of the study was 97 bpm. IMPRESSION: The patient did not qualify for supplemental oxygen at rest or with ambulation. Compared to a prior 6 Minute Walk Test on 03/04/2023, distance walked was 396 meters, 14 meters more, and saturation was 95-98%, not a significant decline over 2 years.
== END 2025-06-07 09:56 | disposition home or self-care (01) ==
LOC: ANHPFT 09:58
PROVIDERS: PCP Nurse Practitioner Family; Visit Provider Internal Medicine Critical Care Medicine
DX: J44.9 Chronic obstructive pulmonary disease, unspecified (principal)
CPT/HCPCS: 94060; 94618; 94726; 94729